=== PATIENT | female | born 1980 | race Caucasian/White ===

== ENCOUNTER → 2016-10-29 | Outpatient (CLI) | payer OTHER ==
[2016-10-29 11:02] LABS: CHLORIDE,CL 110 mmol/L (98-110); SODIUM,NA 141 mmol/L (136-146)
== END ==
LOC: MW.CHFP 10:25
PROVIDERS: ATTEND Nurse Practitioner Family
DX: Z01.818 Encounter for other preprocedural examination (principal)
CPT/HCPCS: 36415; 80048; 81001; 81025; 85027

== ENCOUNTER 2017-04-05 15:35 | Emergency (ER) | payer OTHER ==
--- NOTE | 2017-04-05 16:09 | EDM.PDOC ---
ED HPI GENERAL MEDICAL PROBLEM - General Chief Complaint: Upper Extremity Injury/Pain Stated Complaint: LEFT SHOULDER PAIN Time Seen by Provider: 04/05/17 16:04 - History of Present Illness INITIAL COMMENTS - FREE TEXT/NARRATIVE: HISTORY AND PHYSICAL: History of present illness: Patient 36-year-old female sensory concern of left shoulder injury this occurred when she was pulled up while doing a physical activity this past weekend she's had discomfort since. She denies direct trauma or other concern she denies prior injuries. Review of systems: As per history of present illness and below otherwise all systems reviewed and negative. Past medical history: As per history of present illness and as reviewed below otherwise noncontributory. Surgical history: As per history of present illness and as reviewed below otherwise noncontributory. Social history: No reported history of drug or alcohol abuse. Family history: As per history of present illness and as reviewed below otherwise noncontributory. Physical exam: HEENT: Atraumatic, normocephalic, pupils reactive, negative for conjunctival pallor or scleral icterus, mucous membranes moist, throat clear, neck supple, nontender, trachea midline. Lungs: Clear to auscultation, breath sounds equal bilaterally, chest nontender. Heart: S1S2, regular, negative for clicks, rubs, or JVD. Abdomen: Soft, nondistended, nontender. Negative for masses or hepatosplenomegaly. Negative for costovertebral tenderness. Pelvis: Stable nontender. Genitourinary: Deferred. Rectal: Deferred. Extremities: Left shoulder is tenderness in the region of the acromioclavicular joint and anterior deltoid she has limited range of motion due to pain. There is no gross deformity CMS neurovascular is unremarkable Neuro: Awake, alert, oriented. Cranial nerves II through XII unremarkable. Cerebellum unremarkable. Motor and sensory unremarkable throughout. Exam nonfocal. Diagnostics: X-ray left shoulder Therapeutics: Sling Impression: #1 acute left shoulder injury Definitive disposition and diagnosis as appropriate pending reevaluation and review of above. Left Shoulder Pain Score (Numeric/FACES): 7 - Related Data Allergies Allergy/AdvReac Type Severity Reaction Status Date / Time No Known Allergies Allergy Verified 10/04/14 10:03 Social & Family History - Tobacco Use Smoking Status *Q: Never Smoker Second Hand Smoke Exposure: No - Caffeine Use Caffeine Use: Reports: None - Recreational Drug Use Recreational Drug Use: No Review of Systems - Review of Systems Review Of Systems: ROS reveals no pertinent complaints other than HPI. ED EXAM, GENERAL - Physical Exam Exam: See Below (See dictation) Course - Vital Signs Last Recorded V/S: Last Vital Signs Temp 36.6 C 04/05/17 15:55 Pulse 74 04/05/17 15:55 Resp 20 04/05/17 15:55 BP 107/56 L 04/05/17 15:55 Pulse Ox 100 04/05/17 15:55 - Orders/Labs/Meds Orders: Active Orders 24 hr Category Date Time Status Shoulder Comp Lt [CR] Stat Exams 04/05/17 16:10 Taken Ketorolac [Toradol] Med 04/05/17 17:29 Once 60 mg IM ONETIME ONE Meds: Medications Discontinued Medications Generic Name Dose Route Start Last Admin Trade Name Freq PRN Reason Stop Dose Admin Ketorolac Tromethamine 60 mg 04/05/17 17:29 Toradol IM 04/05/17 17:30 ONETIME ONE Departure - Departure Time of Disposition: 17:23 Disposition: Home, Self-Care 01 Condition: Good Clinical Impression: Shoulder injury Qualifiers: Encounter type: initial encounter Laterality: left Qualified Code(s): S49.92XA - Unspecified injury of left shoulder and upper arm, initial encounter - Discharge Information Referrals: Dora Wilcox NP [Primary Care Provider] - Forms: ED Department Discharge Additional Instructions: The following information is given to patients seen in the emergency department who are being discharged to home. This information is to outline your options for follow-up care. We provide all patients seen in our emergency department with a follow-up referral. The need for follow-up, as well as the timing and circumstances, are variable depending upon the specifics of your emergency department visit. If you don't have a primary care physician on staff, we will provide you with a referral. We always advise you to contact your personal physician following an emergency department visit to inform them of the circumstance of the visit and for follow-up with them and/or the need for any referrals to a consulting specialist. The emergency department will also refer you to a specialist when appropriate. This referral assures that you have the opportunity for followup care with a specialist. All of these measure are taken in an effort to provide you with optimal care, which includes your followup. Under all circumstances we always encourage you to contact your private physician who remains a resource for coordinating your care. When calling for followup care, please make the office aware that this follow-up is from your recent emergency room visit. If for any reason you are refused follow-up, please contact the [facility] emergency department at and asked to speak to the emergency department charge nurse. [facility] [address], [address] [place] [address] 1. Please wear the sling that has been provided to you for comfort. 2. May take [id number] ibuprofen and/or Tylenol as directed for pain and discomfort. 3. Please follow-up with your primary care provider in the next 1-2 days. If pain continues please follow-up with orthopedics, this number has been provided for you. 4. Return to the ER as needed as discussed - My Orders Last 24 Hours: My Active Orders 04/05/17 16:10 Shoulder Comp Lt [CR] Stat 04/05/17 17:29 Ketorolac [Toradol] 60 mg IM ONETIME ONE - Assessment/Plan Last 24 Hours: My Active Orders 04/05/17 16:10 Shoulder Comp Lt [CR] Stat 04/05/17 17:29 Ketorolac [Toradol] 60 mg IM ONETIME ONE
[2017-04-05] MEDS ORDERED: Ketorolac 60 MG/2 ML SDV IM ONE (17:29)
[2017-04-05 18:16] VITALS: BP 99/58
--- NOTE | 2017-04-06 10:13 | CR ---
EXAM DATE: 04/05/17 PATIENT'S AGE: 36 Patient: DIDIER LIRIANO Facility: [place], [place] Site . Site : 1980 Study: XRay Shoulder Left [id number]/29/2017 4:42:25 PM Ordering Physician: Kwame Tan Final Report: Indication: Pain Technique: Three views of the left shoulder Comparison: None available Findings: Bones: Alignment is normal. No fractures or bone lesions. Joint spaces: Unremarkable. Soft tissues: Unremarkable. Impression: Negative. Dictated by Delfin Fam MD @ 04/05/2017 5:13:07 PM Dictated by: Delfin Fam MD @ 04/05/2017 17:13:14 (Electronic Signature) Report Signed by Proxy. CONG
== END 2017-04-05 18:15 | disposition home or self-care (01) ==
LOC: MW.ED 15:35
DX: S49.92XA Unspecified injury of left shoulder and upper arm, initial encounter (principal); X50.9XXA Other and unspecified overexertion or strenuous movements or postures, initial encounter; Y93.89 Activity, other specified
CPT/HCPCS: 73030; 96372; 99283; J1885; 99282

== ENCOUNTER 2018-03-23 12:59 | Emergency (ER) | payer OTHER ==
[2018-03-23 13:15] VITALS: BP 97/63
[2018-03-23] MEDS ORDERED: Metoclopramide 10 MG/2 ML SDV IV ONE (13:24)
[2018-03-23] MEDS ORDERED: Ondansetron 4 MG Tab.DIS PO ONE (13:24)
[2018-03-23] MEDS ORDERED: Ketorolac 30 MG/ML SDV IVPUSH ONE (13:24)
[2018-03-23] MEDS ORDERED: diphenhydrAMINE 50 MG/ML SDV IVPUSH ONE (13:24)
[2018-03-23] MEDS ORDERED: Sodium Chloride 0.9% 1,000 ML IV ONE (13:24)
--- NOTE | 2018-03-23 13:24 | EDM.PDOC ---
ED HPI GENERAL MEDICAL PROBLEM - General Chief Complaint: Headache Stated Complaint: FEVER AND BAD HEADACHE Time Seen by Provider: 03/23/18 13:05 - History of Present Illness INITIAL COMMENTS - FREE TEXT/NARRATIVE: HISTORY AND PHYSICAL: History of present illness: Patient's a 37-year-old female history migraine headache was on prophylactic medication and has not had one for approximately 4 months presents with concern of low-grade fever and headache she's had photophobia but no associated nausea there's been no other neurological signs or symptoms she denies chest pain cough shortness breath abdominal pain urinary symptoms or other complaints. Review of systems: As per history of present illness and below otherwise all systems reviewed and negative. Past medical history: As per history of present illness and as reviewed below otherwise noncontributory. Surgical history: As per history of present illness and as reviewed below otherwise noncontributory. Social history: No reported history of drug or alcohol abuse. Family history: As per history of present illness and as reviewed below otherwise noncontributory. Physical exam: HEENT: Atraumatic, normocephalic, pupils reactive, negative for conjunctival pallor or scleral icterus, mucous membranes moist, throat clear, neck supple, nontender, trachea midline. Lungs: Clear to auscultation, breath sounds equal bilaterally, chest nontender. Heart: S1S2, regular, negative for clicks, rubs, or JVD. Abdomen: Soft, nondistended, nontender. Negative for masses or hepatosplenomegaly. Negative for costovertebral tenderness. Pelvis: Stable nontender. Genitourinary: Deferred. Rectal: Deferred. Extremities: Atraumatic, negative for cords or calf pain. Neurovascular unremarkable. Neuro: Awake, alert, oriented. Cranial nerves II through XII unremarkable. Cerebellum unremarkable. Motor and sensory unremarkable throughout. Exam nonfocal. Diagnostics: West Nile serology Therapeutics: Normal saline 1 L bolus Reglan 10 mg IV Zofran for millirems IV Toradol 30 mg IV Benadryl 50 mg IV Impression: #1 cephalgia Definitive disposition and diagnosis as appropriate pending reevaluation and review of above. 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 ED EXAM, GENERAL - Physical Exam Exam: See Below (See dictation) Course - Vital Signs Text/Narrative:: I discussed with patient and more extensive testing regarding blood and imaging at this time they defer I discussed with him risk benefits of all the above I discussed with them fax regarding West Nile virus and other related etiologies separate and apart from migraine headache and understand. Last Recorded V/S: Last Vital Signs Temp 36.6 C 03/23/18 13:09 Pulse 105 H 03/23/18 13:09 Resp 16 03/23/18 13:09 BP 97/63 03/23/18 13:09 Pulse Ox 95 03/23/18 13:09 - Orders/Labs/Meds Orders: Active Orders 24 hr Category Date Time Status WEST NILE VIRUS ANTIBODY,SERUM [REF] DAILY Lab 03/23/18 13:50 Received Meds: Medications Discontinued Medications Generic Name Dose Route Start Last Admin Trade Name Freq PRN Reason Stop Dose Admin Diphenhydramine HCl 50 mg 03/23/18 13:24 03/23/18 13:57 Benadryl IVPUSH 03/23/18 13:25 50 mg ONETIME ONE Administration Sodium Chloride 1,000 mls @ 999 mls/hr 03/23/18 13:24 03/23/18 13:50 Normal Saline IV 03/23/18 14:24 999 mls/hr STAT ONE Administration Ketorolac Tromethamine 30 mg 03/23/18 13:24 03/23/18 13:54 Toradol IVPUSH 03/23/18 13:25 30 mg ONETIME ONE Administration Metoclopramide HCl 10 mg 03/23/18 13:24 03/23/18 13:51 Reglan IV 03/23/18 13:25 10 mg ONETIME ONE Administration Ondansetron HCl 4 mg 03/23/18 13:24 03/23/18 13:49 Zofran Odt PO 03/23/18 13:25 4 mg ONETIME ONE Administration Departure - Departure Time of Disposition: 14:24 Disposition: Home, Self-Care 01 Condition: Good Clinical Impression: Migraine - Discharge Information *PRESCRIPTION DRUG MONITORING PROGRAM REVIEWED*: Not Applicable *COPY OF PRESCRIPTION DRUG MONITORING REPORT IN PATIENT TRAY: Not Applicable Referrals: Dora Wilcox NP [Primary Care Provider] - Forms: ED Department Discharge Additional Instructions: The following information is given to patients seen in the emergency department who are being discharged to home. This information is to outline your options for follow-up care. We provide all patients seen in our emergency department with a follow-up referral. The need for follow-up, as well as the timing and circumstances, are variable depending upon the specifics of your emergency department visit. If you don't have a primary care physician on staff, we will provide you with a referral. We always advise you to contact your personal physician following an emergency department visit to inform them of the circumstance of the visit and for follow-up with them and/or the need for any referrals to a consulting specialist. The emergency department will also refer you to a specialist when appropriate. This referral assures that you have the opportunity for followup care with a specialist. All of these measure are taken in an effort to provide you with optimal care, which includes your followup. Under all circumstances we always encourage you to contact your private physician who remains a resource for coordinating your care. When calling for followup care, please make the office aware that this follow-up is from your recent emergency room visit. If for any reason you are refused follow-up, please contact the [facility] emergency department at and asked to speak to the emergency department charge nurse. Continue current medications follow-up primary medical doctor/neurology as needed as discussed return as needed as discussed - My Orders Last 24 Hours: My Active Orders 03/23/18 13:50 WEST NILE VIRUS ANTIBODY,SERUM [REF] DAILY - Assessment/Plan Last 24 Hours: My Active Orders 03/23/18 13:50 WEST NILE VIRUS ANTIBODY,SERUM [REF] DAILY
== END 2018-03-23 14:55 | disposition home or self-care (01) ==
LOC: MW.ED 12:59
DX: G43.909 Migraine, unspecified, not intractable, without status migrainosus (principal); Z79.899 Other long term (current) drug therapy
CPT/HCPCS: 86788; 86789; 96361; 96374; 96375; 99284; A9270; J1200; J1885; J2765; J7040

== ENCOUNTER 2018-11-15 08:14 | Day surgery (SDC) | payer OTHER ==
[~2018-11-15 08:14] MED LIST: Acetaminophen/HYDROcodone 325-5 MG Tab PO PRN; Dexamethasone 4 MG/ML 5 ML MDV ONE; Lactated Ringers 1,000 ML IV SCH; Lidocaine 1% 20 ML MDV ONE; Midazolam 1 MG/ML 2 ML SDV ONE; Ondansetron 4 MG/2 ML SDV ONE; Propofol 200 MG/20 ML SDV ONE; ceFAZolin 1 GM in Premix Bag 1 BAG IV SCH; fentaNYL 250 MCG/5 ML SDV ONE
--- NOTE | 2018-11-15 09:22 | PCM.PREANE ---
Preanesthetic Assessment - Anesthesia/Transfusion/Family Hx Anesthesia History: Prior Anesthesia Without Reaction Family History of Anesthesia Reaction: No Transfusion History: No Prior Transfusion(s) - Review of Systems General: No Symptoms Pulmonary: No Symptoms Cardiovascular: No Symptoms Gastrointestinal: No Symptoms Neurological: No Symptoms Other: Reports: None - Physical Assessment NPO Status Date: 11/14/18 O2 Sat by Pulse Oximetry: 100 Respiratory Rate: 16 Vital Signs: Last Vital Signs Temp 98.8 F 11/15/18 08:45 Pulse 70 11/15/18 08:45 Resp 16 11/15/18 08:45 BP 104/66 11/15/18 08:45 Pulse Ox 100 11/15/18 08:45 Height: 5 ft 4 in Weight: 52.617 kg ASA Class: 2 Mental Status: Alert & Oriented x3 Airway Class: Mallampati = 2 Dentition: Reports: Normal Dentition ROM/Head Extension: Full Lungs: Clear to Auscultation, Normal Respiratory Effort Cardiovascular: Regular Rate, Regular Rhythm - Lab Values: Laboratory Last Values Urine HCG, Qual NEGATIVE (NEGATIVE) 11/15/18 08:42 - Allergies Allergies/Adverse Reactions: Allergies Allergy/AdvReac Type Severity Reaction Status Date / Time sulfamethoxazole Allergy Rash Verified 11/14/18 11:53 [From Bactrim] trimethoprim [From Bactrim] Allergy Rash Verified 11/14/18 11:53 - Blood Blood Available: No - Anesthesia Plan Pre-Op Medication Ordered: None - Acknowledgements Anesthesia Type Planned: General Anesthesia Pt an Appropriate Candidate for the Planned Anesthesia: Yes Alternatives and Risks of Anesthesia Discussed w Pt/Guardian: Yes Pt/Guardian Understands and Agrees with Anesthesia Plan: Yes Additional Comments: PMH: exerc ind asthma, hx of migraines, Has neurostim pump for bladder (use grounding pad on thigh) PLAN: [id number] PreAnesthesia Questionnaire HEENT History: Reports: Other (See Below) Other HEENT History: wears glasses/contacts Respiratory History: Reports: Asthma Other Respiratory History: exercised induced asthma Genitourinary History: Reports: UTI, Recurrent Other Genitourinary History: 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 Musculoskeletal History: Reports: Fracture Other Musculoskeletal History: hx of fx tibia and foot Neurological History: Reports: Concussion, Migraines Other Neuro History: takes topirimate BID for migraines, hx of motion sickness - Infectious Disease History Infectious Disease History: Reports: Chicken Pox - Past Surgical History Head Surgeries/Procedures: Reports: None GI Surgical History: Reports: Appendectomy, Cholecystectomy, Other (See Below) Other GI Surgeries/Procedures: Abdominoplasty Female Surgical History: Reports: Breast Implant, Other (See Below) Other Female Surgeries/Procedures: has a Sacral Neuromodulator implanted in her back to stimulate bladder to empty - SUBSTANCE USE Smoking Status *Q: Never Smoker Recreational Drug Use History: No - HOME MEDS Home Medications: Home Meds Spironolactone [Aldactone] 100 mg PO BEDTIME 11/14/18 [History] Topiramate 50 mg PO BID 11/14/18 [History] traZODone HCl [Trazodone HCl] 100 mg PO BEDTIME 11/14/18 [History] - CURRENT (IN HOUSE) MEDS Current Meds: Current Medications Hydrocodone Bitart/Acetaminophen ([place] 325-5 Mg) 1 - 2 tab PO Q4H PRN PRN Reason: Pain Cefazolin Sodium/Dextrose 1 gm (/ Premix) 50 mls @ 100 mls/hr IV ONCALL LISA Lactated Ringer's (Ringers, Lactated) 1,000 mls @ 100 mls/hr IV ASDIRECTED LISA Discontinued Medications Dexamethasone (Dexamethasone) Confirm Administered Dose 20 mg .ROUTE .STK-MED ONE Stop: 11/15/18 07:14 Fentanyl (Sublimaze) Confirm Administered Dose 250 mcg .ROUTE .STK-MED ONE Stop: 11/15/18 07:14 Lidocaine HCl (Xylocaine-Mpf 1%) Confirm Administered Dose 5 mls @ as directed .ROUTE .STK-MED ONE Stop: 11/15/18 07:14 Cefazolin Sodium/Dextrose (Ancef) Confirm Administered Dose 50 mls @ as directed .ROUTE .STK-MED ONE Stop: 11/15/18 07:20 Lidocaine HCl (Xylocaine 1%) Confirm Administered Dose 20 ml .ROUTE .STK-MED ONE Stop: 11/15/18 07:37 Midazolam HCl (Versed 1 Mg/Ml) Confirm Administered Dose 2 mg .ROUTE .STK-MED ONE Stop: 11/15/18 07:14 Ondansetron HCl (Zofran) Confirm Administered Dose 4 mg .ROUTE .STK-MED ONE Stop: 11/15/18 07:14 Propofol (Diprivan 20 Ml) Confirm Administered Dose 200 mg .ROUTE .[facility] ONE Stop: 11/15/18 07:14
[2018-11-15] MEDS ORDERED: Ketorolac 30 MG/ML SDV ONE (11:46)
--- NOTE | 2018-11-15 11:59 | PCM.OPNOTE ---
- General Post-Op/Procedure Note Condition: Good Free Text/Narrative:: #[id number] tt=10 min
[2018-11-15] MEDS ORDERED: fentaNYL 100 MCG/2 ML SDV IVPUSH PRN (12:25)
--- NOTE | 2018-11-15 12:54 | PCM.POSTAN ---
POST ANESTHESIA ASSESSMENT - MENTAL STATUS Mental Status: Alert, Oriented - RESPIRATORY Respiratory Status: Respiratory Rate WNL, Airway Patent, O2 Saturation Stable - CARDIOVASCULAR CV Status: Pulse Rate WNL, Blood Pressure Stable - GASTROINTESTINAL GI Status: No Symptoms - POST OP HYDRATION Hydration Status: Adequate & Stable
--- NOTE | 2018-11-15 12:55 | PCM48HPAN ---
Post Anesthesia Note - EVALUATION WITHIN 48HRS OF ANESTHETIC Vital Signs in Normal Range: Yes Patient Participated in Evaluation: Yes Respiratory Function Stable: Yes Airway Patent: Yes Cardiovascular Function Stable: Yes Hydration Status Stable: Yes Pain Control Satisfactory: Yes Nausea and Vomiting Control Satisfactory: Yes Mental Status Recovered: Yes Resp Rate: 16
[2018-11-15 13:50] VITALS: BP 94/53
--- NOTE | 2018-11-15 18:25 | OR ---
SURGEON: Nicky Ross MD DATE OF PROCEDURE: 11/15/2018 PREOPERATIVE DIAGNOSIS: Right knee pain. POSTOPERATIVE DIAGNOSIS: 1. Right knee medial plica. 2. Right knee patellar chondromalacia. PROCEDURE PERFORMED: Right knee arthroscopy with excision of medial plica and chondroplasty of the patella. PROGRAMS MANAGER: Griselda Hernandez PA-C. ANESTHESIA: General. ESTIMATED BLOOD LOSS: 5 mL. TOURNIQUET TIME: See nursing record. COMPLICATIONS: None. DVT PROPHYLAXIS: PAS boot to the nonoperative leg. IMPLANTS USED: None. BRIEF HISTORY: Nery is a 38-year-old female who has had complaint of ongoing right knee pain. She was unable to undergo an MRI due to a history of an implanted stimulator. Due to her lack of response to conservative treatment, I did recommend surgical intervention. The risks and goals of the procedure were discussed with the patient and were documented preoperatively. She agreed to proceed. DESCRIPTION OF PROCEDURE: Patient was properly identified and brought to the operating room. She was transferred from the OR cart and placed on the operating table in supine position. General anesthesia was administered. After adequate anesthesia was obtained, a well-padded tourniquet was applied to the right lower extremity. The right lower extremity was then prepped in standard fashion using ChloraPrep solution. It was then sterilely draped. A time-out was performed to ensure correct site and procedure. Preoperative antibiotics were given. The surgical site had been marked preoperatively. An Esmarch was used to exsanguinate the right lower extremity, and the tourniquet was inflated to 250 mmHg. A lateral portal arthrotomy was established. Blunt trocar and cannula were introduced into the suprapatellar pouch. Camera, inflow, and outflow were assembled. No significant synovitis was noted. The patellofemoral joint was visualized. There was an area of grade 3 chondromalacia along the superolateral portion of the patella. The patella appeared to track midline. I then extended down the lateral and medial gutter. No loose bodies were identified. I then entered the medial compartment. A medial portal arthrotomy was established. The meniscus was extensively probed. No tearing or instability was noted. The joint surfaces also appeared pristine. I then entered the notch. Both the ACL and PCL were visualized and probed and found to be intact. I then entered the lateral compartment. The meniscus showed no signs of tearing or instability. The joint surfaces again appeared pristine. I then re-entered the patellofemoral joint. The superolateral area of cartilage was inspected. There were a few loose fragments and I proceeded with a chondroplasty of the patella. No further loose fragments were noted. The medial plica was then inspected. There was a thick band of tissue that appeared to be impinging on the medial femoral condyle as the knee was taken through flexion and extension. I elected to proceed with excision of this. A shaver was used to remove the band of tissue which was removed easily and no further impingement was noted. Instruments were then removed from the knee. The portal sites were closed with 3-0 nylon. 1% Lidocaine was injected along the portal tracts. Xeroform gauze was placed over the wound and a bulky dressing was applied. The tourniquet was then deflated. She was awakened from her anesthetic and transferred back to the operating room cart. She was brought to recovery room in stable condition. All needle and sponge counts were correct. JAKE / GARRETT /[id number]
== END 2018-11-15 14:25 | disposition home or self-care (01) ==
LOC: MW.SDS 08:14
PROVIDERS: ATTEND Orthopaedic Surgery
DX: M67.51 Plica syndrome, right knee (principal); M22.41 Chondromalacia patellae, right knee; M65.861 Other synovitis and tenosynovitis, right lower leg; J45.990 Exercise induced bronchospasm; Z88.1 Allergy status to other antibiotic agents
CPT/HCPCS: 29875; 81025; A9270; J0690; J1100; J1885; J2001; J2250; J2405; J2704; J3010

== ENCOUNTER 2020-04-27 22:27 | Observation (INO) | payer OTHER ==
[2020-04-27] MEDS ORDERED: Morphine 10 MG/ML Syringe IVPUSH ONE (23:15)
[2020-04-27] MEDS ORDERED: Sodium Chloride 0.9% 2.5 ML Syringe FLUSH PRN (23:15)
[2020-04-27] MEDS ORDERED: Ondansetron 4 MG/2 ML SDV IVPUSH ONE (23:15)
[2020-04-27] MEDS ORDERED: Ketorolac 15 MG/ML SDV IVPUSH ONE (23:15)
[2020-04-27] MEDS ORDERED: Sodium Chloride 0.9% 1,000 ML IV ONE (23:15)
[2020-04-27] MEDS ORDERED: Sodium Chloride 0.9% 10 ML Syringe FLUSH PRN (23:15)
--- NOTE | 2020-04-27 23:19 | EDM.PDOC ---
ED HPI GENERAL MEDICAL PROBLEM - General Chief Complaint: Flank Pain Stated Complaint: KIDNEY PAIN Time Seen by Provider: 04/27/20 23:17 Source of Information: Reports: Patient History Limitations: Reports: No Limitations - History of Present Illness INITIAL COMMENTS - FREE TEXT/NARRATIVE: History of present illness: [Patient is 39-year-old female who presents with right flank pain. She states that she was seen by urology and had surgery to remove a kidney stone, this included cystoscopy and lithotripsy. She states that there was some concern she may have had an infection associate with a stone but she was never put on antibiotics. She states since having the surgery she has had some worsening pain in the right flank, was taking Percocet and ibuprofen at home but states that she ran out of the Percocet on Tuesday and the Tylenol and ibuprofen she has been using at home has not been sufficient and she is having significantly worsening pain. She denies fever or chills. She denies chest pain or shortness of breath. She endorses dysuria and increased frequency as well.] Review of systems: As per history of present illness and below otherwise all systems reviewed and negative. Past medical history: As per history of present illness and as reviewed below otherwise noncontributory. Surgical history: As per history of present illness and as reviewed below otherwise noncontributory. Social history: No reported history of drug or alcohol abuse. Family history: As per history of present illness and as reviewed below otherwise noncontributory. Physical exam: General: Awake, alert, mild distress, A&O X3. HEENT: Atraumatic, normocephalic, pupils reactive, negative for conjunctival pallor or scleral icterus, mucous membranes moist, throat clear, neck supple, nontender, trachea midline. Lungs: Clear to auscultation, breath sounds equal bilaterally, chest nontender. Heart: RRR, normal S1S2, no JVD. Abdomen: Soft, nondistended, nontender. Negative for masses or hepatosplenomegaly. mild right costovertebral tenderness. Pelvis: Stable nontender. Genitourinary: Deferred. Rectal: Deferred. Extremities: Atraumatic, no edema, Neurovascular unremarkable. Neuro: Motor and sensory grossly intact throughout. Exam nonfocal. Diagnostics: [] Therapeutics: [] Impression: [] Plan: [] Definitive disposition and diagnosis as appropriate pending reevaluation and review of above. Right Flank Pain Score (Numeric/FACES): 10 - Related Data Allergies Allergy/AdvReac Type Severity Reaction Status Date / Time sulfamethoxazole Allergy Rash Verified 04/27/20 22:57 [From Bactrim] trimethoprim [From Bactrim] Allergy Rash Verified 04/27/20 22:57 Home Meds: Home Meds Spironolactone [Aldactone] 100 mg PO BEDTIME 11/14/18 [History] Topiramate 50 mg PO BID 11/14/18 [History] traZODone HCl [Trazodone HCl] 100 mg PO BEDTIME 11/14/18 [History] Acetaminophen/HYDROcodone [[place] 325-5 MG] 1 - 2 tab PO Q4H PRN #20 tablet 11/15/18 [Rx] Past Medical History HEENT History: Reports: Other (See Below) Other HEENT History: wears glasses/contacts Respiratory History: Reports: Asthma Other Respiratory History: exercised induced asthma Genitourinary History: Reports: UTI, Recurrent Other Genitourinary History: 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 Musculoskeletal History: Reports: Fracture Other Musculoskeletal History: hx of fx tibia and foot Neurological History: Reports: Concussion, Migraines Other Neuro History: takes topirimate BID for migraines, hx of motion sickness - Infectious Disease History Infectious Disease History: Reports: Chicken Pox - Past Surgical History Head Surgeries/Procedures: Reports: None GI Surgical History: Reports: Appendectomy, Cholecystectomy, Other (See Below) Other GI Surgeries/Procedures: Abdominoplasty Female Surgical History: Reports: Breast Implant, Other (See Below) Other Female Surgeries/Procedures: has a Sacral Neuromodulator implanted in her back to stimulate bladder to empty Social & Family History - Family History Family Medical History: Noncontributory - Caffeine Use Caffeine Use: Reports: Energy Drinks ED ROS GENERAL - Review of Systems Review Of Systems: Comprehensive ROS is negative, except as noted in HPI. ED EXAM, RENAL/ - Physical Exam Exam: See Below (see h and p) Course - Vital Signs Text/Narrative:: Patient to be admitted for intractable flank pain. Her work-up here shows that she does have some right-sided hydronephrosis and hydroureter. Unclear if this is due to edema or possible hematoma related to her recent procedure of removing the kidney stone. She also has what looks to be a mild focal area of pneumonitis in the right lower lobe of the lung. For this reason I elected to treat her with a dose of Rocephin here in the ED. No evidence for UTI. Vital signs stable. No fever. Urology consulted, Dr. Ledesma, agrees to see the patient in the morning. She will be admitted for observation, pain control, and urological consult. She is agreeable to this plan and stable at admission. Last Recorded V/S: Last Vital Signs Temp 36.4 C 04/27/20 22:53 Pulse 60 04/28/20 00:15 Resp 18 04/28/20 00:15 BP 105/59 L 04/28/20 00:15 Pulse Ox 97 04/28/20 00:15 - Orders/Labs/Meds Orders: Active Orders 24 hr Category Date Time Status Sodium Chloride 0.9% [Saline Flush] Med 04/27/20 23:15 Active 10 ml FLUSH ASDIRECTED PRN Sodium Chloride 0.9% [Saline Flush] Med 04/27/20 23:15 Active 2.5 ml FLUSH ASDIRECTED PRN Saline Lock Insert [OM.PC] Stat Oth 04/27/20 23:15 Ordered Medication Orders Ceftriaxone Sodium/Dextrose 1 (gm/ Premix) 50 mls @ 100 mls/hr IV ONETIME ONE Stop: 04/28/20 02:10 Last Admin: 04/28/20 01:51 Dose: 100 mls/hr Documented by: NA Sodium Chloride (Saline Flush) 10 ml FLUSH ASDIRECTED PRN PRN Reason: Keep Vein Open Sodium Chloride (Saline Flush) 2.5 ml FLUSH ASDIRECTED PRN PRN Reason: Keep Vein Open Labs: Laboratory Tests 04/27/20 04/27/20 04/27/20 Range/Units 23:15 23:15 23:25 WBC 8.16 (4.0-11.0) K/uL RBC 3.90 L (4.30-5.90) M/uL Hgb 12.2 (12.0-16.0) g/dL Hct 36.2 (36.0-46.0) % MCV 92.8 (80.0-98.0) fL MCH 31.3 (27.0-32.0) pg MCHC 33.7 (31.0-37.0) g/dL RDW Std Deviation 40.3 (28.0-62.0) fl RDW Coeff of Elliot 12 (11.0-15.0) % Plt Count 192 (150-400) K/uL MPV 10.70 (7.40-12.00) fL Neut % (Auto) 56.9 (48.0-80.0) % Lymph % (Auto) 31.9 (16.0-40.0) % [place] % (Auto) 8.8 (0.0-15.0) % Eos % (Auto) 2.2 (0.0-7.0) % Baso % (Auto) 0.2 (0.0-1.5) % Neut # (Auto) 4.6 (1.4-5.7) K/uL Lymph # (Auto) 2.6 H (0.6-2.4) K/uL [place] # (Auto) 0.7 (0.0-0.8) K/uL Eos # (Auto) 0.2 (0.0-0.7) K/uL Baso # (Auto) 0.0 (0.0-0.1) K/uL Nucleated RBC % 0.0 /100WBC Nucleated RBCs # 0 K/uL Lactate (0.20-2.00) mmol/L Sodium (136-145) mmol/L Potassium (3.5-5.1) mmol/L Chloride (98-107) mmol/L Carbon Dioxide (21.0-32.0) mmol/L BUN (7.0-18.0) mg/dL Creatinine (0.6-1.0) mg/dL Est Cr Clr Drug Dosing Estimated GFR (MDRD) ml/min Glucose (74-106) mg/dL Calcium (8.5-10.1) mg/dL Total Bilirubin (0.2-1.0) mg/dL AST (15-37) IU/L ALT (14-63) IU/L Alkaline Phosphatase (46-116) U/L Total Protein (6.4-8.2) g/dL Albumin (3.4-5.0) g/dL Globulin (2.6-4.0) g/dL Albumin/Globulin Ratio (0.9-1.6) Urine Color YELLOW Urine Appearance SLT CLOUDY Urine pH 6.5 (5.0-8.0) Ur Specific [place] <= 1.005 (1.001-1.035) Urine Protein NEGATIVE (NEGATIVE) mg/dL Urine Glucose (UA) NEGATIVE (NEGATIVE) mg/dL Urine Ketones NEGATIVE (NEGATIVE) mg/dL Urine Occult Blood LARGE H (NEGATIVE) Urine Nitrite NEGATIVE (NEGATIVE) Urine Bilirubin NEGATIVE (NEGATIVE) Urine Urobilinogen 0.2 (<2.0) EU/dL Ur Leukocyte Esterase TRACE H (NEGATIVE) Urine RBC 0-2 (0-2/HPF) Urine WBC 1-3 (0-5/HPF) Ur Epithelial Cells FEW (NONE-FEW) Urine Bacteria FEW (NEGATIVE) Urine HCG, Qual NEGATIVE (NEGATIVE) 04/27/20 04/27/20 Range/Units 23:25 23:25 WBC (4.0-11.0) K/uL RBC (4.30-5.90) M/uL Hgb (12.0-16.0) g/dL Hct (36.0-46.0) % MCV (80.0-98.0) fL MCH (27.0-32.0) pg MCHC (31.0-37.0) g/dL RDW Std Deviation (28.0-62.0) fl RDW Coeff of [place] (11.0-15.0) % Plt Count (150-400) K/uL MPV (7.40-12.00) fL Neut % (Auto) (48.0-80.0) % Lymph % (Auto) (16.0-40.0) % [place] % (Auto) (0.0-15.0) % Eos % (Auto) (0.0-7.0) % Baso % (Auto) (0.0-1.5) % Neut # (Auto) (1.4-5.7) K/uL Lymph # (Auto) (0.6-2.4) K/uL [place] # (Auto) (0.0-0.8) K/uL Eos # (Auto) (0.0-0.7) K/uL Baso # (Auto) (0.0-0.1) K/uL Nucleated RBC % /100WBC Nucleated RBCs # K/uL Lactate 0.8 (0.20-2.00) mmol/L Sodium 142 (136-145) mmol/L Potassium 4.3 (3.5-5.1) mmol/L Chloride 107 (98-107) mmol/L Carbon Dioxide 26.4 (21.0-32.0) mmol/L BUN 13 (7.0-18.0) mg/dL Creatinine 1.1 H (0.6-1.0) mg/dL Est Cr Clr Drug Dosing TNP Estimated GFR (MDRD) 55.6 ml/min Glucose 79 (74-106) mg/dL Calcium 8.5 (8.5-10.1) mg/dL Total Bilirubin 0.1 L (0.2-1.0) mg/dL AST 15 (15-37) IU/L ALT 20 (14-63) IU/L Alkaline Phosphatase 43 L (46-116) U/L Total Protein 6.4 (6.4-8.2) g/dL Albumin 3.6 (3.4-5.0) g/dL Globulin 2.8 (2.6-4.0) g/dL Albumin/Globulin Ratio 1.3 (0.9-1.6) Urine Color Urine Appearance Urine pH (5.0-8.0) Ur Specific [place] (1.001-1.035) Urine Protein (NEGATIVE) mg/dL Urine Glucose (UA) (NEGATIVE) mg/dL Urine Ketones (NEGATIVE) mg/dL Urine Occult Blood (NEGATIVE) Urine Nitrite (NEGATIVE) Urine Bilirubin (NEGATIVE) Urine Urobilinogen (<2.0) EU/dL Ur Leukocyte Esterase (NEGATIVE) Urine RBC (0-2/HPF) Urine WBC (0-5/HPF) Ur Epithelial Cells (NONE-FEW) Urine Bacteria (NEGATIVE) Urine HCG, Qual (NEGATIVE) Meds: Medications Generic Name Dose Route Start Last Admin Trade Name Freq PRN Reason Stop Dose Admin Ceftriaxone Sodium/Dextrose 1 50 mls @ 100 mls/hr 04/28/20 01:41 04/28/20 01:51 gm/ Premix IV 04/28/20 02:10 100 mls/hr ONETIME ONE Administration Sodium Chloride 10 ml 04/27/20 23:15 Saline Flush FLUSH ASDIRECTED PRN Keep Vein Open Sodium Chloride 2.5 ml 04/27/20 23:15 Saline Flush FLUSH ASDIRECTED PRN Keep Vein Open Discontinued Medications Generic Name Dose Route Start Last Admin Trade Name Josué PRN Reason Stop Dose Admin Sodium Chloride 1,000 mls @ 999 mls/hr 04/27/20 23:15 04/27/20 23:34 Normal Saline IV 04/28/20 00:15 999 mls/hr .Bolus ONE Administration Ceftriaxone Sodium 1 gm/ 50 mls @ 200 mls/hr 04/28/20 01:26 04/28/20 01:42 Sodium Chloride IV 04/28/20 01:40 Not Given ONETIME ONE Ketorolac Tromethamine 15 mg 04/27/20 23:15 04/27/20 23:35 Toradol IVPUSH 04/27/20 23:16 15 mg ONETIME ONE Administration Morphine Sulfate 8 mg 04/27/20 23:15 04/27/20 23:36 Morphine IVPUSH 04/27/20 23:16 8 mg ONETIME ONE Administration Ondansetron HCl 4 mg 04/27/20 23:15 04/27/20 23:34 Zofran IVPUSH 04/27/20 23:16 4 mg ONETIME ONE Administration Oxycodone/Acetaminophen 1 tab 04/28/20 01:20 04/28/20 01:51 Percocet 325-10 Mg PO 04/28/20 01:21 1 tab ONETIME ONE Administration Departure - Departure Time of Disposition: 15:00 Disposition: Refer to Observation Condition: Good Clinical Impression: Flank pain - Discharge Information Sepsis Event Note (ED) - Evaluation Sepsis Screening Result: No Definite Risk - Focused Exam Vital Signs: Vital Signs Temp Pulse Resp BP Pulse Ox 04/28/20 00:15 60 18 105/59 L 97 04/27/20 22:53 36.4 C 69 16 120/78 98 - My Orders Last 24 Hours: My Active Orders 04/27/20 23:15 Sodium Chloride 0.9% [Saline Flush] 10 ml FLUSH ASDIRECTED PRN Sodium Chloride 0.9% [Saline Flush] 2.5 ml FLUSH ASDIRECTED PRN Saline Lock Insert [OM.PC] Stat - Assessment/Plan Last 24 Hours: My Active Orders 04/27/20 23:15 Sodium Chloride 0.9% [Saline Flush] 10 ml FLUSH ASDIRECTED PRN Sodium Chloride 0.9% [Saline Flush] 2.5 ml FLUSH ASDIRECTED PRN Saline Lock Insert [OM.PC] Stat
[2020-04-27 23:50] LABS: BLOOD UREA NITROGEN,BUN 13 mg/dL (7.0-18.0); CARBON DIOXIDE,CO2 26.4 mmol/L (21.0-32.0); CHLORIDE,CL 107 mmol/L (98-107); GLUCOSE RANDOM 79 mg/dL (74-106); POTASSIUM,K 4.3 mmol/L (3.5-5.1); SODIUM,NA 142 mmol/L (136-145)
--- NOTE | 2020-04-28 00:50 | CT ---
INDICATION: Right flank pain TECHNIQUE: CT abdomen and pelvis without contrast. COMPARISON: 02/28/2020 FINDINGS: Lower chest: Very subtle foci of slight ill-defined ground-glass opacity in the right lung base. Decreased attenuation in the cardiac chambers suggestive of anemia. Breast implants. Liver: Unremarkable. Spleen: Unremarkable. Pancreas: Unremarkable. Gallbladder and bile ducts: Cholecystectomy. Mild central biliary prominence could be related to the postcholecystectomy state, although not seen on the prior. Adrenal glands: Unremarkable. Kidneys: Moderate right hydroureteronephrosis. The previously seen right renal upper pole calcification is not identified on the current study. Apparent focal soft tissue density in the region of the distal right ureter on image 107 of series 201, not seen on the recent prior study, which could represent focal urothelial edema or distal ureteral blood clot. No discrete right ureteral calcifications seen. Small right pelvic calcifications were seen on the prior study and are compatible with phleboliths. Apparent miniscule nonobstructive left renal upper pole calcific densities versus artifact. GI tract: Unremarkable. Apparent post appendectomy changes. Vascular structures: Unremarkable. Lymph nodes: Unremarkable. Miscellaneous: Small pelvic free-fluid. No free air. A small fat containing paraumbilical hernia. An imbedded device again seen in the right gluteal subcutaneous fat with the lead extending into the right posterior inferior pelvis. Pelvic Organs: An apparent 3.3 x 1.2 cm ovoid soft tissue density along the right posterior bladder wall on image 110, not seen on the prior study. A punctate calcification along the posterior bladder wall on image 110 was seen on the prior study. No gross uterine abnormality seen. A 2.2 x 1.9 cm right adnexal low-density structure on image 98 which could represent a dominant follicle. Bones: Unremarkable for age. IMPRESSION: Moderate right obstructive uropathy. A discrete right ureteral calculus is not seen. An apparent focus of soft tissue prominence in the region of the distal right ureter, and an ovoid soft tissue density in the posterior right bladder in the region of the UVJ, not seen on the recent prior study, which could represent edema and/or hematomas, related to a recently passed calculus. Further urological evaluation is recommended to exclude the less likely possibility of urothelial lesions. Small subtle foci of slight ground-glass opacity in the right lung base which could be related to minor compressive changes or a mild nonspecific infectious/inflammatory pneumonitis. Correlate clinically. Dictated by Delfin Fam MD @ 04/28/2020 12:49:43 AM Please note that all CT scans at this facility use dose modulation, iterative reconstruction, and/or weight-based dosing when appropriate to reduce radiation dose to as low as reasonably achievable. Dictated by: Delfin Fam MD @ 04/28/2020 00:49:47 (Electronically Signed)
[2020-04-28] MEDS ORDERED: Acetaminophen/oxyCODONE 325-10 MG Tab PO ONE (01:20)
[2020-04-28] MEDS ORDERED: cefTRIAXone 1 GM in Sodium Chloride 0.9% 50 ML IV ONE (01:26)
[2020-04-28] MEDS ORDERED: cefTRIAXone 1 GM in Premix Bag 1 BAG IV ONE (01:41)
[2020-04-28] MEDS: Morphine 2 MG/ML SYRINGE IVPUSH PRN ×2 (03:39→08:26)
[2020-04-28] MEDS: Lactated Ringers 1,000 ML IV SCH ×3 (03:40→21:50)
[2020-04-28 06:23] LABS: BLOOD UREA NITROGEN,BUN 10 mg/dL (7.0-18.0); CARBON DIOXIDE,CO2 23.8 mmol/L (21.0-32.0); CHLORIDE,CL 112 mmol/L (98-107); GLUCOSE RANDOM 86 mg/dL (74-106); POTASSIUM,K 3.9 mmol/L (3.5-5.1); SODIUM,NA 144 mmol/L (136-145)
[2020-04-28] MEDS: Pantoprazole 40 MG in Sodium Chloride 0.9% 10 ML IV SCH (08:26)
--- NOTE | 2020-04-28 10:06 | PCM.HP.2 ---
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 She had Procedure about 1 week ago and removed the stent on Tuesday. She reports she was starting to feel ill on tuesday with N/V and poor appetite along with dysuria and flank pain. She reports after the stent was removed she had a significant increase in pain which continued through the weekend. She attempted to call her surgeon but couldn't get through. She came to the ER here to be evaluated. She reports she has noticed some hematuria and dark urine. Flank pain is sharp and feels like her "kidney is huge". Denies fevers or chills, no chest pain or SOB. No diarrhea or constipation. No focal neurological deficits. No tobacco use, no alcohol use and no recreational drug use. Int he ED labwork stable, Hgb 12.2 BUN 13 Cr 1.1 UA negative, excepted for large blood. CT revealed moderate R obstructive uropathy, apparent focus of soft tissue prominence in the region of the distal R ureter and ovid soft tissue density in the posterior R bladder in the region of the UVJ, which could represent edema and or hematomas Subtle ground glass opacities noted in R lung base. Dr Ledesma notified in the ED, recommended admission with Hospitalist. Dr Steve Ocampo from [facility] completed procedures. Right Flank Pain Score (Numeric/FACES): 10 - Related Data Allergies/Adverse Reactions: Allergies Allergy/AdvReac Type Severity Reaction Status Date / Time sulfamethoxazole Allergy Rash Verified 04/27/20 22:57 [From Bactrim] tamsulosin [From Flomax] Allergy Itching Verified 04/28/20 03:46 trimethoprim [From Bactrim] Allergy Rash Verified 04/27/20 22:57 Home Medications: Home Meds Spironolactone [Aldactone] 100 mg PO BEDTIME 11/14/18 [History] Topiramate 50 mg PO BID 11/14/18 [History] traZODone HCl [Trazodone HCl] 100 mg PO BEDTIME 11/14/18 [History] oxyCODONE 1 tab PO Q4HR PRN 04/28/20 [History] Past Medical History HEENT History: Reports: Other (See Below) Other HEENT History: wears glasses/contacts Respiratory History: Reports: Asthma Other Respiratory History: exercised induced asthma Genitourinary History: Reports: UTI, Recurrent Other Genitourinary History: 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 Musculoskeletal History: Reports: Fracture Other Musculoskeletal History: hx of fx tibia and foot Neurological History: Reports: Concussion, Migraines Other Neuro History: takes topirimate BID for migraines, hx of motion sickness - Infectious Disease History Infectious Disease History: Reports: Chicken Pox - Past Surgical History Head Surgeries/Procedures: Reports: None GI Surgical History: Reports: Appendectomy, Cholecystectomy, Other (See Below) Other GI Surgeries/Procedures: Abdominoplasty Female Surgical History: Reports: Breast Implant, Other (See Below) Other Female Surgeries/Procedures: has a Sacral Neuromodulator implanted in her back to stimulate bladder to empty Social & Family History - Family History Family Medical History: Noncontributory - Tobacco Use Smoking Status *Q: Never Smoker Second Hand Smoke Exposure: No - Caffeine Use Caffeine Use: Reports: Coffee - Alcohol Use Days Per Week of Alcohol Use: 0 - Recreational Drug Use Recreational Drug Use: No H&P Review of Systems - Review of Systems: Review Of Systems: See Below General: Reports: No Symptoms. Denies: Fever, Chills, Malaise, Weakness HEENT: Reports: No Symptoms. Denies: Hearing Changes, Sore Throat, Vertigo Pulmonary: Reports: No Symptoms. Denies: Shortness of Breath Cardiovascular: Reports: No Symptoms. Denies: Chest Pain Gastrointestinal: Reports: Abdominal Pain, Nausea, Vomiting (not since tuesday). Denies: Black Stool, Bloody Stool, Diarrhea Genitourinary: Reports: Dysuria, Hematuria, Flank Pain Skin: Reports: No Symptoms Psychiatric: Reports: No Symptoms Neurological: Reports: No Symptoms Hematologic/Lymphatic: Reports: No Symptoms Immunologic: Reports: No Symptoms Exam - Exam Exam: See Below - Vital Signs Vital Signs: Last Vital Signs Temp 99 F 04/28/20 03:29 Pulse 60 04/28/20 03:29 Resp 16 04/28/20 03:29 BP 112/61 04/28/20 03:29 Pulse Ox 100 04/28/20 03:59 Weight: 57.663 kg - Exam General: Alert, Oriented, Cooperative Lungs: Clear to Auscultation, Normal Respiratory Effort Cardiovascular: Regular Rate, Regular Rhythm GI/Abdominal Exam: Normal Bowel Sounds, Soft, Tender (R upper and lower) Back Exam: CVA Tenderness (R) Neuro Extensive - Mental Status: Alert, Oriented x3 Neuro Extensive - Motor, Sensory, Reflexes: CN II-XII Intact - Patient Data Lab Results Last 24 hrs: Laboratory Results - last 24 hr 04/27/20 04/27/20 04/27/20 Range/Units 23:15 23:15 23:25 WBC 8.16 (4.0-11.0) K/uL RBC 3.90 L (4.30-5.90) M/uL Hgb 12.2 (12.0-16.0) g/dL Hct 36.2 (36.0-46.0) % MCV 92.8 (80.0-98.0) fL MCH 31.3 (27.0-32.0) pg MCHC 33.7 (31.0-37.0) g/dL RDW Std Deviation 40.3 (28.0-62.0) fl RDW Coeff of Elliot 12 (11.0-15.0) % Plt Count 192 (150-400) K/uL MPV 10.70 (7.40-12.00) fL Neut % (Auto) 56.9 (48.0-80.0) % Lymph % (Auto) 31.9 (16.0-40.0) % [place] % (Auto) 8.8 (0.0-15.0) % Eos % (Auto) 2.2 (0.0-7.0) % Baso % (Auto) 0.2 (0.0-1.5) % Neut # (Auto) 4.6 (1.4-5.7) K/uL Lymph # (Auto) 2.6 H (0.6-2.4) K/uL [place] # (Auto) 0.7 (0.0-0.8) K/uL Eos # (Auto) 0.2 (0.0-0.7) K/uL Baso # (Auto) 0.0 (0.0-0.1) K/uL Nucleated RBC % 0.0 /100WBC Nucleated RBCs # 0 K/uL Lactate (0.20-2.00) mmol/L Sodium (136-145) mmol/L Potassium (3.5-5.1) mmol/L Chloride (98-107) mmol/L Carbon Dioxide (21.0-32.0) mmol/L BUN (7.0-18.0) mg/dL Creatinine (0.6-1.0) mg/dL Est Cr Clr Drug Dosing Estimated GFR (MDRD) ml/min Glucose (74-106) mg/dL Calcium (8.5-10.1) mg/dL Phosphorus (2.6-4.7) mg/dL Magnesium (1.8-2.4) mg/dL Total Bilirubin (0.2-1.0) mg/dL AST (15-37) IU/L ALT (14-63) IU/L Alkaline Phosphatase (46-116) U/L Total Protein (6.4-8.2) g/dL Albumin (3.4-5.0) g/dL Globulin (2.6-4.0) g/dL Albumin/Globulin Ratio (0.9-1.6) Urine Color YELLOW Urine Appearance SLT CLOUDY Urine pH 6.5 (5.0-8.0) Ur Specific [place] <= 1.005 (1.001-1.035) Urine Protein NEGATIVE (NEGATIVE) mg/dL Urine Glucose (UA) NEGATIVE (NEGATIVE) mg/dL Urine Ketones NEGATIVE (NEGATIVE) mg/dL Urine Occult Blood LARGE H (NEGATIVE) Urine Nitrite NEGATIVE (NEGATIVE) Urine Bilirubin NEGATIVE (NEGATIVE) Urine Urobilinogen 0.2 (<2.0) EU/dL Ur Leukocyte Esterase TRACE H (NEGATIVE) Urine RBC 0-2 (0-2/HPF) Urine WBC 1-3 (0-5/HPF) Ur Epithelial Cells FEW (NONE-FEW) Urine Bacteria FEW (NEGATIVE) Urine HCG, Qual NEGATIVE (NEGATIVE) SARS-CoV-2 RNA (NILESH) (NEGATIVE) 04/27/20 04/27/20 04/28/20 Range/Units 23:25 23:25 01:30 WBC (4.0-11.0) K/uL RBC (4.30-5.90) M/uL Hgb (12.0-16.0) g/dL Hct (36.0-46.0) % MCV (80.0-98.0) fL MCH (27.0-32.0) pg MCHC (31.0-37.0) g/dL RDW Std Deviation (28.0-62.0) fl RDW Coeff of Elliot (11.0-15.0) % Plt Count (150-400) K/uL MPV (7.40-12.00) fL Neut % (Auto) (48.0-80.0) % Lymph % (Auto) (16.0-40.0) % [place] % (Auto) (0.0-15.0) % Eos % (Auto) (0.0-7.0) % Baso % (Auto) (0.0-1.5) % Neut # (Auto) (1.4-5.7) K/uL Lymph # (Auto) (0.6-2.4) K/uL [place] # (Auto) (0.0-0.8) K/uL Eos # (Auto) (0.0-0.7) K/uL Baso # (Auto) (0.0-0.1) K/uL Nucleated RBC % /100WBC Nucleated RBCs # K/uL Lactate 0.8 (0.20-2.00) mmol/L Sodium 142 (136-145) mmol/L Potassium 4.3 (3.5-5.1) mmol/L Chloride 107 (98-107) mmol/L Carbon Dioxide 26.4 (21.0-32.0) mmol/L BUN 13 (7.0-18.0) mg/dL Creatinine 1.1 H (0.6-1.0) mg/dL Est Cr Clr Drug Dosing TNP Estimated GFR (MDRD) 55.6 ml/min Glucose 79 (74-106) mg/dL Calcium 8.5 (8.5-10.1) mg/dL Phosphorus (2.6-4.7) mg/dL Magnesium (1.8-2.4) mg/dL Total Bilirubin 0.1 L (0.2-1.0) mg/dL AST 15 (15-37) IU/L ALT 20 (14-63) IU/L Alkaline Phosphatase 43 L (46-116) U/L Total Protein 6.4 (6.4-8.2) g/dL Albumin 3.6 (3.4-5.0) g/dL Globulin 2.8 (2.6-4.0) g/dL Albumin/Globulin Ratio 1.3 (0.9-1.6) Urine Color Urine Appearance Urine pH (5.0-8.0) Ur Specific [place] (1.001-1.035) Urine Protein (NEGATIVE) mg/dL Urine Glucose (UA) (NEGATIVE) mg/dL Urine Ketones (NEGATIVE) mg/dL Urine Occult Blood (NEGATIVE) Urine Nitrite (NEGATIVE) Urine Bilirubin (NEGATIVE) Urine Urobilinogen (<2.0) EU/dL Ur Leukocyte Esterase (NEGATIVE) Urine RBC (0-2/HPF) Urine WBC (0-5/HPF) Ur Epithelial Cells (NONE-FEW) Urine Bacteria (NEGATIVE) Urine HCG, Qual (NEGATIVE) SARS-CoV-2 RNA (NILESH) NEGATIVE (NEGATIVE) 04/28/20 04/28/20 Range/Units 05:40 05:40 WBC 7.91 (4.0-11.0) K/uL RBC 3.62 L (4.30-5.90) M/uL Hgb 11.2 L (12.0-16.0) g/dL Hct 33.8 L (36.0-46.0) % MCV 93.4 (80.0-98.0) fL MCH 30.9 (27.0-32.0) pg MCHC 33.1 (31.0-37.0) g/dL RDW Std Deviation 40.6 (28.0-62.0) fl RDW Coeff of Elliot 12 (11.0-15.0) % Plt Count 182 (150-400) K/uL MPV 10.70 (7.40-12.00) fL Neut % (Auto) 59.8 (48.0-80.0) % Lymph % (Auto) 30.7 (16.0-40.0) % [place] % (Auto) 7.6 (0.0-15.0) % Eos % (Auto) 1.6 (0.0-7.0) % Baso % (Auto) 0.3 (0.0-1.5) % Neut # (Auto) 4.7 (1.4-5.7) K/uL Lymph # (Auto) 2.4 (0.6-2.4) K/uL [place] # (Auto) 0.6 (0.0-0.8) K/uL Eos # (Auto) 0.1 (0.0-0.7) K/uL Baso # (Auto) 0.0 (0.0-0.1) K/uL Nucleated RBC % 0.0 /100WBC Nucleated RBCs # 0 K/uL Lactate (0.20-2.00) mmol/L Sodium 144 (136-145) mmol/L Potassium 3.9 (3.5-5.1) mmol/L Chloride 112 H (98-107) mmol/L Carbon Dioxide 23.8 (21.0-32.0) mmol/L BUN 10 (7.0-18.0) mg/dL Creatinine 0.9 (0.6-1.0) mg/dL Est Cr Clr Drug Dosing 73.19 Estimated GFR (MDRD) > 60.0 ml/min Glucose 86 (74-106) mg/dL Calcium 8.1 L (8.5-10.1) mg/dL Phosphorus 3.6 (2.6-4.7) mg/dL Magnesium 1.7 L (1.8-2.4) mg/dL Total Bilirubin (0.2-1.0) mg/dL AST (15-37) IU/L ALT (14-63) IU/L Alkaline Phosphatase (46-116) U/L Total Protein (6.4-8.2) g/dL Albumin (3.4-5.0) g/dL Globulin (2.6-4.0) g/dL Albumin/Globulin Ratio (0.9-1.6) Urine Color Urine Appearance Urine pH (5.0-8.0) Ur Specific [place] (1.001-1.035) Urine Protein (NEGATIVE) mg/dL Urine Glucose (UA) (NEGATIVE) mg/dL Urine Ketones (NEGATIVE) mg/dL Urine Occult Blood (NEGATIVE) Urine Nitrite (NEGATIVE) Urine Bilirubin (NEGATIVE) Urine Urobilinogen (<2.0) EU/dL Ur Leukocyte Esterase (NEGATIVE) Urine RBC (0-2/HPF) Urine WBC (0-5/HPF) Ur Epithelial Cells (NONE-FEW) Urine Bacteria (NEGATIVE) Urine HCG, Qual (NEGATIVE) SARS-CoV-2 RNA (NILESH) (NEGATIVE) Result Diagrams: 04/28/20 05:40 04/28/20 05:40 Sepsis Event Note - Evaluation Sepsis Screening Result: No Definite Risk - Focused Exam Vital Signs: Vital Signs Temp Pulse Resp BP Pulse Ox 04/28/20 03:59 100 04/28/20 03:29 99 F 60 16 112/61 100 04/28/20 01:55 98 F 62 18 107/67 99 04/28/20 00:15 60 18 105/59 L 97 04/27/20 22:53 97.6 F 69 16 120/78 98 - Problem List (1) Hydronephrosis, right SNOMED Code(s): 46731362 ICD Code: N13.30 - UNSPECIFIED HYDRONEPHROSIS Status: Acute Current Visit: Yes (2) Flank pain SNOMED Code(s): 580526064 ICD Code: R10.9 - UNSPECIFIED ABDOMINAL PAIN Status: Acute Current Visit: Yes Problem List Initiated/Reviewed/Updated: Yes Orders Last 24hrs: Active Orders 24 hr Category Date Time Status Patient Status [ADT] Routine ADT 04/28/20 01:24 Active Antiembolic Devices [RC] PER UNIT ROUTINE Care 04/28/20 03:20 Active Notify Provider Consults [RC] ASDIRECTED Care 04/28/20 03:34 Active Oxygen Therapy [RC] ASDIRECTED Care 04/28/20 03:19 Active Pulse Oximetry [RC] ASDIRECTED Care 04/28/20 03:20 Active Telemetry Monitoring [Cardiac Monitoring] [RC] Q8H Care 04/28/20 03:40 Active Vital Signs [RC] Q4H Care 04/28/20 03:14 Active Consult to Physician [CONS] Routine Cons 04/28/20 03:30 Active Regular Diet [DIET] Diet 04/28/20 Breakfast Active Lactated Ringers [Ringers, Lactated] 1,000 ml Med 04/28/20 03:15 Active IV ASDIRECTED Morphine Med 04/28/20 03:15 Active 2 mg IVPUSH Q4H PRN Ondansetron [Zofran] Med 04/28/20 03:18 Active 4 mg IVPUSH Q4H PRN Pantoprazole [ProTONIX IV] 40 mg Med 04/28/20 09:00 Active Sodium Chloride 0.9% [Normal Saline] 10 ml IV DAILY Sodium Chloride 0.9% [Saline Flush] Med 04/27/20 23:15 Active 10 ml FLUSH ASDIRECTED PRN Sodium Chloride 0.9% [Saline Flush] Med 04/27/20 23:15 Active 2.5 ml FLUSH ASDIRECTED PRN SCD [Sequential Compression Device] [OM.PC] Routine Oth 04/28/20 03:20 Ordered Saline Lock Insert [OM.PC] Stat Oth 04/27/20 23:15 Ordered Medication Orders Lactated Ringer's (Ringers, Lactated) 1,000 mls @ 125 mls/hr IV ASDIRECTED LISA Last Admin: 04/28/20 03:40 Dose: 125 mls/hr Documented by: ATUL Pantoprazole Sodium 40 mg/ (Sodium Chloride) 10 mls @ 300 mls/hr IV DAILY LISA Last Admin: 04/28/20 08:26 Dose: 300 mls/hr Documented by: HILLARY Morphine Sulfate (Morphine) 2 mg IVPUSH Q4H PRN PRN Reason: Pain Last Admin: 04/28/20 08:26 Dose: 2 mg Documented by: Admin: 04/28/20 03:39 Dose: 2 mg Documented by: ATUL Ondansetron HCl (Zofran) 4 mg IVPUSH Q4H PRN PRN Reason: Nausea/Vomiting Sodium Chloride (Saline Flush) 10 ml FLUSH ASDIRECTED PRN PRN Reason: Keep Vein Open Sodium Chloride (Saline Flush) 2.5 ml FLUSH ASDIRECTED PRN PRN Reason: Keep Vein Open Assessment/Plan Comment:: This 39 year old female admitted with R flank pain and CT findings of hydronephrosis s/p stent placement/removal 1. R flank pain, Hydronephrosis - Recently have stent placement and removal of stent on the right for stone removal. Dr Ocampo at [facility] completed surgery - I spoke with Dr Ocampo this morning, read him the CT he felt this could be related to post operative edema and stent removal edema. [place] if her pain was out of control, that he would recommended stent placement again or conservative management with IVF and pain control for 24-48 hours would be appropriate. Treat infection if suspected, but based on labwork and UA this is not evident. - Dr Ledesma, our urologist consulted and will see patient this afternoon. - Morphine increased to 4 mg every 3 hours IV PRN pain - CL diet - LR 125 for now - Encouraged ambulation with IS use every 1 hour VTE prophylaxis: SCDs and ambulation Consult: Dr Ledesma Dispo: 1-2 days pending improvement - Mortality Measure Prognosis:: Good
[2020-04-28] MEDS: Morphine 4 MG/ML Syringe IVPUSH PRN ×2 (12:37→15:47)
[2020-04-28] MEDS ORDERED: Magnesium Sulfate/Water 2 GM/50 ML Premix Bag IV ONE (13:58)
[2020-04-28] MEDS ORDERED: ceFAZolin 1 GM in Premix Bag 1 BAG IV PRN (16:56)
[2020-04-28] MEDS: HYDROmorphone 1 MG/ML Syringe IVPUSH PRN ×2 (18:23→21:49)
[2020-04-28] MEDS: Ondansetron 4 MG/2 ML SDV IVPUSH PRN ×2 (18:53→22:30)
[2020-04-28] MEDS ORDERED: Acetaminophen 500 MG Tab PO PRN (20:23)
[2020-04-29] MEDS: oxyCODONE 5 MG Tab PO PRN ×2 (00:18→14:41)
[2020-04-29] MEDS: HYDROmorphone 1 MG/ML Syringe IVPUSH PRN ×3 (01:51→09:03)
[2020-04-29] MEDS: Ondansetron 4 MG/2 ML SDV IVPUSH PRN (05:43)
[2020-04-29] MEDS: Lactated Ringers 1,000 ML IV SCH (05:46)
[2020-04-29 06:13] LABS: BLOOD UREA NITROGEN,BUN 7 mg/dL (7.0-18.0); CARBON DIOXIDE,CO2 23.8 mmol/L (21.0-32.0); CHLORIDE,CL 109 mmol/L (98-107); GLUCOSE RANDOM 82 mg/dL (74-106); SODIUM,NA 141 mmol/L (136-145)
--- NOTE | 2020-04-29 07:53 | PCM.PREANE ---
Preanesthetic Assessment - Anesthesia/Transfusion/Family Hx Anesthesia History: Prior Anesthesia Without Reaction Family History of Anesthesia Reaction: No Transfusion History: No Prior Transfusion(s) - Review of Systems General: No Symptoms Pulmonary: No Symptoms Cardiovascular: No Symptoms Gastrointestinal: Abdominal Pain Neurological: Headache Other: Reports: None - Physical Assessment NPO Status Date: 04/28/20 Vital Signs: Last Vital Signs Temp 97.4 F 04/28/20 20:36 Pulse 72 04/29/20 04:00 Resp 18 04/29/20 04:00 BP 109/78 04/29/20 04:00 Pulse Ox 98 04/29/20 04:00 Height: 5 ft 4 in Weight: 57.663 kg ASA Class: 2 Mental Status: Alert & Oriented x3 Airway Class: Mallampati = 2 Dentition: Reports: Normal Dentition ROM/Head Extension: Full Lungs: Clear to Auscultation, Normal Respiratory Effort Cardiovascular: Regular Rate, Regular Rhythm - Lab Values: Laboratory Last Values WBC 6.88 K/uL (4.0-11.0) 04/29/20 05:10 RBC 3.54 M/uL (4.30-5.90) L 04/29/20 05:10 Hgb 11.0 g/dL (12.0-16.0) L 04/29/20 05:10 Hct 33.0 % (36.0-46.0) L 04/29/20 05:10 MCV 93.2 fL (80.0-98.0) 04/29/20 05:10 MCH 31.1 pg (27.0-32.0) 04/29/20 05:10 MCHC 33.3 g/dL (31.0-37.0) 04/29/20 05:10 RDW Std Deviation 40.9 fl (28.0-62.0) 04/29/20 05:10 RDW Coeff of Elliot 12 % (11.0-15.0) 04/29/20 05:10 Plt Count 163 K/uL (150-400) 04/29/20 05:10 MPV 10.80 fL (7.40-12.00) 04/29/20 05:10 Neut % (Auto) 62.4 % (48.0-80.0) 04/29/20 05:10 Lymph % (Auto) 28.6 % (16.0-40.0) 04/29/20 05:10 [place] % (Auto) 7.4 % (0.0-15.0) 04/29/20 05:10 Eos % (Auto) 1.5 % (0.0-7.0) 04/29/20 05:10 Baso % (Auto) 0.1 % (0.0-1.5) 04/29/20 05:10 Neut # (Auto) 4.3 K/uL (1.4-5.7) 04/29/20 05:10 Lymph # (Auto) 2.0 K/uL (0.6-2.4) 04/29/20 05:10 [place] # (Auto) 0.5 K/uL (0.0-0.8) 04/29/20 05:10 Eos # (Auto) 0.1 K/uL (0.0-0.7) 04/29/20 05:10 Baso # (Auto) 0.0 K/uL (0.0-0.1) 04/29/20 05:10 Nucleated RBC % 0.0 /100WBC 04/29/20 05:10 Nucleated RBCs # 0 K/uL 04/29/20 05:10 Lactate 0.8 mmol/L (0.20-2.00) 04/27/20 23:25 Sodium 141 mmol/L (136-145) 04/29/20 05:10 Potassium 4.0 mmol/L (3.5-5.1) 04/29/20 05:10 Chloride 109 mmol/L (98-107) H 04/29/20 05:10 Carbon Dioxide 23.8 mmol/L (21.0-32.0) 04/29/20 05:10 BUN 7 mg/dL (7.0-18.0) 04/29/20 05:10 Creatinine 0.8 mg/dL (0.6-1.0) 04/29/20 05:10 Est Cr Clr Drug Dosing 82.33 mL/min 04/29/20 05:10 Estimated GFR (MDRD) > 60.0 ml/min 04/29/20 05:10 Glucose 82 mg/dL (74-106) 04/29/20 05:10 Calcium 8.0 mg/dL (8.5-10.1) L 04/29/20 05:10 Phosphorus 3.6 mg/dL (2.6-4.7) 04/28/20 05:40 Magnesium 1.7 mg/dL (1.8-2.4) L 04/28/20 05:40 Total Bilirubin 0.1 mg/dL (0.2-1.0) L 04/27/20 23:25 AST 15 IU/L (15-37) 04/27/20 23:25 ALT 20 IU/L (14-63) 04/27/20 23:25 Alkaline Phosphatase 43 U/L (46-116) L 04/27/20 23:25 Total Protein 6.4 g/dL (6.4-8.2) 04/27/20 23:25 Albumin 3.6 g/dL (3.4-5.0) 04/27/20 23:25 Globulin 2.8 g/dL (2.6-4.0) 04/27/20 23:25 Albumin/Globulin Ratio 1.3 (0.9-1.6) 04/27/20 23:25 Urine Color YELLOW 04/27/20 23:15 Urine Appearance SLT CLOUDY 04/27/20 23:15 Urine pH 6.5 (5.0-8.0) 04/27/20 23:15 Ur Specific [place] <= 1.005 (1.001-1.035) 04/27/20 23:15 Urine Protein NEGATIVE mg/dL (NEGATIVE) 04/27/20 23:15 Urine Glucose (UA) NEGATIVE mg/dL (NEGATIVE) 04/27/20 23:15 Urine Ketones NEGATIVE mg/dL (NEGATIVE) 04/27/20 23:15 Urine Occult Blood LARGE (NEGATIVE) H 04/27/20 23:15 Urine Nitrite NEGATIVE (NEGATIVE) 04/27/20 23:15 Urine Bilirubin NEGATIVE (NEGATIVE) 04/27/20 23:15 Urine Urobilinogen 0.2 EU/dL (<2.0) 04/27/20 23:15 Ur Leukocyte Esterase TRACE (NEGATIVE) H 04/27/20 23:15 Urine RBC 0-2 (0-2/HPF) 04/27/20 23:15 Urine WBC 1-3 (0-5/HPF) 04/27/20 23:15 Ur Epithelial Cells FEW (NONE-FEW) 04/27/20 23:15 Urine Bacteria FEW (NEGATIVE) 04/27/20 23:15 Urine HCG, Qual NEGATIVE (NEGATIVE) 04/27/20 23:15 SARS-CoV-2 RNA (NILESH) NEGATIVE (NEGATIVE) 04/28/20 01:30 - Allergies Allergies/Adverse Reactions: Allergies Allergy/AdvReac Type Severity Reaction Status Date / Time sulfamethoxazole Allergy Rash Verified 04/27/20 22:57 [From Bactrim] tamsulosin [From Flomax] Allergy Itching Verified 04/28/20 03:46 trimethoprim [From Bactrim] Allergy Rash Verified 04/27/20 22:57 - Blood Blood Available: No - Anesthesia Plan Pre-Op Medication Ordered: None - Acknowledgements Anesthesia Type Planned: General Anesthesia Pt an Appropriate Candidate for the Planned Anesthesia: Yes Alternatives and Risks of Anesthesia Discussed w Pt/Guardian: Yes Pt/Guardian Understands and Agrees with Anesthesia Plan: Yes Additional Comments: pmh: exerc ind asthma, neurostim for bladder, migraines PLAN: ga/lma PreAnesthesia Questionnaire HEENT History: Reports: Other (See Below) Other HEENT History: wears glasses/contacts Respiratory History: Reports: Asthma Other Respiratory History: exercised induced asthma Genitourinary History: Reports: UTI, Recurrent Other Genitourinary History: 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 Musculoskeletal History: Reports: Fracture Other Musculoskeletal History: hx of fx tibia and foot Neurological History: Reports: Concussion, Migraines Other Neuro History: takes topirimate BID for migraines, hx of motion sickness - Infectious Disease History Infectious Disease History: Reports: Chicken Pox - Past Surgical History Head Surgeries/Procedures: Reports: None GI Surgical History: Reports: Appendectomy, Cholecystectomy, Other (See Below) Other GI Surgeries/Procedures: Abdominoplasty Female Surgical History: Reports: Breast Implant, Other (See Below) Other Female Surgeries/Procedures: has a Sacral Neuromodulator implanted in her back to stimulate bladder to empty - SUBSTANCE USE Smoking Status *Q: Never Smoker Second Hand Smoke Exposure: No Days Per Week of Alcohol Use: 0 Recreational Drug Use History: No - HOME MEDS Home Medications: Home Meds Spironolactone [Aldactone] 100 mg PO BEDTIME 11/14/18 [History] Topiramate 50 mg PO BID 11/14/18 [History] traZODone HCl [Trazodone HCl] 100 mg PO BEDTIME 11/14/18 [History] oxyCODONE 1 tab PO Q4HR PRN 04/28/20 [History] - CURRENT (IN HOUSE) MEDS Current Meds: Current Medications Acetaminophen (Tylenol Extra Strength) 500 mg PO Q6H PRN PRN Reason: Headache/Pain Last Admin: 04/29/20 00:19 Dose: 500 mg Documented by: Hydromorphone HCl (Dilaudid) 1 mg IVPUSH Q3H PRN PRN Reason: Pain Last Admin: 04/29/20 05:43 Dose: 1 mg Documented by: Lactated Ringer's (Ringers, Lactated) 1,000 mls @ 125 mls/hr IV ASDIRECTED LISA Last Admin: 04/29/20 05:46 Dose: 125 mls/hr Documented by: Pantoprazole Sodium 40 mg/ (Sodium Chloride) 10 mls @ 300 mls/hr IV DAILY [facility] Last Admin: 04/28/20 08:26 Dose: 300 mls/hr Documented by: Ondansetron HCl (Zofran) 4 mg IVPUSH Q4H PRN PRN Reason: Nausea/Vomiting Last Admin: 04/29/20 05:43 Dose: 4 mg Documented by: Oxycodone HCl (Oxycodone) 5 mg PO Q4H PRN PRN Reason: Pain Last Admin: 04/29/20 00:18 Dose: 5 mg Documented by: Sodium Chloride (Saline Flush) 10 ml FLUSH ASDIRECTED PRN PRN Reason: Keep Vein Open Sodium Chloride (Saline Flush) 2.5 ml FLUSH ASDIRECTED PRN PRN Reason: Keep Vein Open Sodium Chloride (Saline Flush) 10 ml FLUSH ASDIRECTED PRN PRN Reason: Keep Vein Open Sodium Chloride (Saline Flush) 2.5 ml FLUSH ASDIRECTED PRN PRN Reason: Keep Vein Open Sodium Chloride (Normal Saline) 10 ml IV ASDIRECTED PRN PRN Reason: IV Use Discontinued Medications Sodium Chloride (Normal Saline) 1,000 mls @ 999 mls/hr IV .Bolus ONE Stop: 04/28/20 00:15 Last Admin: 04/27/20 23:34 Dose: 999 mls/hr Documented by: Ceftriaxone Sodium 1 gm/ (Sodium Chloride) 50 mls @ 200 mls/hr IV ONETIME ONE Stop: 04/28/20 01:40 Last Admin: 04/28/20 01:42 Dose: Not Given Documented by: Ceftriaxone Sodium/Dextrose 1 (gm/ Premix) 50 mls @ 100 mls/hr IV ONETIME ONE Stop: 04/28/20 02:10 Last Admin: 04/28/20 01:51 Dose: 100 mls/hr Documented by: Cefazolin Sodium/Dextrose 1 gm (/ Premix) 50 mls @ 100 mls/hr IV ONCALL PRN PRN Reason: surgery Stop: 04/28/20 17:25 Ketorolac Tromethamine (Toradol) 15 mg IVPUSH ONETIME ONE Stop: 04/27/20 23:16 Last Admin: 04/27/20 23:35 Dose: 15 mg Documented by: Magnesium Sulfate (Magnesium Sulfate In Water Premix) 2 gm IV ONETIME ONE Stop: 04/28/20 13:59 Last Admin: 04/28/20 15:17 Dose: 2 gm Documented by: Morphine Sulfate (Morphine) 8 mg IVPUSH ONETIME ONE Stop: 04/27/20 23:16 Last Admin: 04/27/20 23:36 Dose: 8 mg Documented by: Morphine Sulfate (Morphine) 2 mg IVPUSH Q4H PRN PRN Reason: Pain Last Admin: 04/28/20 08:26 Dose: 2 mg Documented by: Morphine Sulfate (Morphine) 4 mg IVPUSH Q3H PRN PRN Reason: Pain Last Admin: 04/28/20 15:47 Dose: 4 mg Documented by: Ondansetron HCl (Zofran) 4 mg IVPUSH ONETIME ONE Stop: 04/27/20 23:16 Last Admin: 04/27/20 23:34 Dose: 4 mg Documented by: Oxycodone/Acetaminophen (Percocet 325-10 Mg) 1 tab PO ONETIME ONE Stop: 04/28/20 01:21 Last Admin: 04/28/20 01:51 Dose: 1 tab Documented by:
[2020-04-29] MEDS ORDERED: Sodium Chloride 0.9% 2.5 ML Syringe FLUSH PRN (08:00)
[2020-04-29] MEDS ORDERED: Sodium Chloride 0.9% 10 ML Syringe FLUSH PRN (08:00)
[2020-04-29] MEDS ORDERED: Sodium Chloride 0.9% 10 ML SDV IV PRN (08:00)
--- NOTE | 2020-04-29 08:13 | PCM.PN ---
- General Info Date of Service: 04/29/20 Admission Dx/Problem (Free Text): Admission Diagnosis/Problem Admission Diagnosis/Problem Flank pain Subjective Update: Continues to have pain to R flank no chest pain or SOB. reports Dr Ledesma is taking her for stent placement today. Functional Status: Reports: Ambulating, Urinating. Denies: Pain Controlled - Review of Systems General: Reports: No Symptoms. Denies: Fatigue, Malaise HEENT: Reports: No Symptoms Pulmonary: Reports: No Symptoms. Denies: Shortness of Breath Cardiovascular: Reports: No Symptoms. Denies: Chest Pain Gastrointestinal: Reports: No Symptoms. Denies: Abdominal Pain, Nausea, Vomiting Genitourinary: Reports: Flank Pain. Denies: Dysuria, Frequency Musculoskeletal: Reports: No Symptoms Skin: Reports: No Symptoms Neurological: Reports: No Symptoms Psychiatric: Reports: No Symptoms - Patient Data Vitals - Most Recent: Last Vital Signs Temp 98.1 F 04/29/20 07:30 Pulse 72 04/29/20 07:30 Resp 16 04/29/20 07:30 BP 102/62 04/29/20 07:30 Pulse Ox 97 04/29/20 07:30 Weight - Most Recent: 57.663 kg I&O - Last 24 Hours: Intake & Output 04/28/20 04/29/20 04/29/20 22:59 06:59 14:59 Intake Total 1386 2200 Output Total 1700 Balance 1386 500 Lab Results Last 24 Hours: Laboratory Results - last 24 hr 04/29/20 04/29/20 Range/Units 05:10 05:10 WBC 6.88 (4.0-11.0) K/uL RBC 3.54 L (4.30-5.90) M/uL Hgb 11.0 L (12.0-16.0) g/dL Hct 33.0 L (36.0-46.0) % MCV 93.2 (80.0-98.0) fL MCH 31.1 (27.0-32.0) pg MCHC 33.3 (31.0-37.0) g/dL RDW Std Deviation 40.9 (28.0-62.0) fl RDW Coeff of Elliot 12 (11.0-15.0) % Plt Count 163 (150-400) K/uL MPV 10.80 (7.40-12.00) fL Neut % (Auto) 62.4 (48.0-80.0) % Lymph % (Auto) 28.6 (16.0-40.0) % [place] % (Auto) 7.4 (0.0-15.0) % Eos % (Auto) 1.5 (0.0-7.0) % Baso % (Auto) 0.1 (0.0-1.5) % Neut # (Auto) 4.3 (1.4-5.7) K/uL Lymph # (Auto) 2.0 (0.6-2.4) K/uL [place] # (Auto) 0.5 (0.0-0.8) K/uL Eos # (Auto) 0.1 (0.0-0.7) K/uL Baso # (Auto) 0.0 (0.0-0.1) K/uL Nucleated RBC % 0.0 /100WBC Nucleated RBCs # 0 K/uL Sodium 141 (136-145) mmol/L Potassium 4.0 (3.5-5.1) mmol/L Chloride 109 H (98-107) mmol/L Carbon Dioxide 23.8 (21.0-32.0) mmol/L BUN 7 (7.0-18.0) mg/dL Creatinine 0.8 (0.6-1.0) mg/dL Est Cr Clr Drug Dosing 82.33 mL/min Estimated GFR (MDRD) > 60.0 ml/min Glucose 82 (74-106) mg/dL Calcium 8.0 L (8.5-10.1) mg/dL Med Orders - Current: Current Medications Acetaminophen (Tylenol Extra Strength) 500 mg PO Q6H PRN PRN Reason: Headache/Pain Last Admin: 04/29/20 00:19 Dose: 500 mg Documented by: Hydromorphone HCl (Dilaudid) 1 mg IVPUSH Q3H PRN PRN Reason: Pain Last Admin: 04/29/20 05:43 Dose: 1 mg Documented by: Lactated Ringer's (Ringers, Lactated) 1,000 mls @ 125 mls/hr IV ASDIRECTED LISA Last Admin: 04/29/20 05:46 Dose: 125 mls/hr Documented by: Pantoprazole Sodium 40 mg/ (Sodium Chloride) 10 mls @ 300 mls/hr IV DAILY LISA Last Admin: 04/28/20 08:26 Dose: 300 mls/hr Documented by: Ondansetron HCl (Zofran) 4 mg IVPUSH Q4H PRN PRN Reason: Nausea/Vomiting Last Admin: 04/29/20 05:43 Dose: 4 mg Documented by: Oxycodone HCl (Oxycodone) 5 mg PO Q4H PRN PRN Reason: Pain Last Admin: 04/29/20 00:18 Dose: 5 mg Documented by: Sodium Chloride (Saline Flush) 10 ml FLUSH ASDIRECTED PRN PRN Reason: Keep Vein Open Sodium Chloride (Saline Flush) 2.5 ml FLUSH ASDIRECTED PRN PRN Reason: Keep Vein Open Sodium Chloride (Saline Flush) 10 ml FLUSH ASDIRECTED PRN PRN Reason: Keep Vein Open Sodium Chloride (Saline Flush) 2.5 ml FLUSH ASDIRECTED PRN PRN Reason: Keep Vein Open Sodium Chloride (Normal Saline) 10 ml IV ASDIRECTED PRN PRN Reason: IV Use Discontinued Medications Sodium Chloride (Normal Saline) 1,000 mls @ 999 mls/hr IV .Bolus ONE Stop: 04/28/20 00:15 Last Admin: 04/27/20 23:34 Dose: 999 mls/hr Documented by: Ceftriaxone Sodium 1 gm/ (Sodium Chloride) 50 mls @ 200 mls/hr IV ONETIME ONE Stop: 04/28/20 01:40 Last Admin: 04/28/20 01:42 Dose: Not Given Documented by: Ceftriaxone Sodium/Dextrose 1 (gm/ Premix) 50 mls @ 100 mls/hr IV ONETIME ONE Stop: 04/28/20 02:10 Last Admin: 04/28/20 01:51 Dose: 100 mls/hr Documented by: Cefazolin Sodium/Dextrose 1 gm (/ Premix) 50 mls @ 100 mls/hr IV ONCALL PRN PRN Reason: surgery Stop: 04/28/20 17:25 Ketorolac Tromethamine (Toradol) 15 mg IVPUSH ONETIME ONE Stop: 04/27/20 23:16 Last Admin: 04/27/20 23:35 Dose: 15 mg Documented by: Magnesium Sulfate (Magnesium Sulfate In Water Premix) 2 gm IV ONETIME ONE Stop: 04/28/20 13:59 Last Admin: 04/28/20 15:17 Dose: 2 gm Documented by: Morphine Sulfate (Morphine) 8 mg IVPUSH ONETIME ONE Stop: 04/27/20 23:16 Last Admin: 04/27/20 23:36 Dose: 8 mg Documented by: Morphine Sulfate (Morphine) 2 mg IVPUSH Q4H PRN PRN Reason: Pain Last Admin: 04/28/20 08:26 Dose: 2 mg Documented by: Morphine Sulfate (Morphine) 4 mg IVPUSH Q3H PRN PRN Reason: Pain Last Admin: 04/28/20 15:47 Dose: 4 mg Documented by: Ondansetron HCl (Zofran) 4 mg IVPUSH ONETIME ONE Stop: 04/27/20 23:16 Last Admin: 04/27/20 23:34 Dose: 4 mg Documented by: Oxycodone/Acetaminophen (Percocet 325-10 Mg) 1 tab PO ONETIME ONE Stop: 04/28/20 01:21 Last Admin: 04/28/20 01:51 Dose: 1 tab Documented by: - Exam General: Alert, Oriented, Cooperative, No Acute Distress Lungs: Clear to Auscultation, Normal Respiratory Effort Cardiovascular: Regular Rate, Regular Rhythm GI/Abdominal Exam: Normal Bowel Sounds, Soft, Non-Tender Back Exam: Normal Inspection, Full Range of Motion, CVA Tenderness (R) Extremities: Normal Inspection, Normal Range of Motion, Non-Tender, No Pedal Edema Psy/Mental Status: Alert, Normal Affect, Normal Mood Sepsis Event Note - Evaluation Sepsis Screening Result: No Definite Risk - Focused Exam Vital Signs: Vital Signs Temp Pulse Resp BP BP Pulse Ox 04/29/20 07:30 98.1 F 72 16 102/62 97 04/29/20 04:00 72 18 109/78 98 04/29/20 00:00 69 14 107/70 98 04/28/20 20:36 97.4 F 70 18 110/61 99 - Problem List & Annotations (1) Hydronephrosis, right SNOMED Code(s): 72744787 Code(s): N13.30 - UNSPECIFIED HYDRONEPHROSIS Status: Acute Current Visit: Yes (2) Flank pain SNOMED Code(s): 186367319 Code(s): R10.9 - UNSPECIFIED ABDOMINAL PAIN Status: Acute Current Visit: Yes - Problem List Review Problem List Initiated/Reviewed/Updated: Yes - My Orders Last 24 Hours: My Active Orders 04/28/20 Lunch Clear Liquid Diet [DIET] 04/28/20 14:01 Diversified Crops Farmer Discontinue [Cardiac Monitoring Discontinue] [RC] Click to Edit 04/28/20 14:02 Intake and Output Strict [RC] ASDIRECTED Resuscitation Status Routine 04/28/20 16:21 HYDROmorphone [Dilaudid] 1 mg IVPUSH Q3H PRN 04/30/20 05:11 BMP [BASIC METABOLIC PANEL,BMP] [CHEM] AM CBC WITH AUTO DIFF [HEME] AM - Plan Plan:: This 39 year old female admitted with R flank pain and CT findings of hydronephrosis s/p stent placement/removal 1. R flank pain, Hydronephrosis - Recently have stent placement and removal of stent on the right for stone removal. Dr Ocampo at [facility] completed surgery - I spoke with Dr Ocampo this morning, read him the CT he felt this could be related to post operative edema and stent removal edema. [place] if her pain was out of control, that he would recommended stent placement again or conservative management with IVF and pain control for 24-48 hours would be appropriate. Treat infection if suspected, but based on labwork and UA this is not evident. - Dr Ledesma, our urologist consulted and will place stent today - Dilaudid 3 hours IV PRN pain - LR 125 for now - Encouraged ambulation with IS use every 1 hour VTE prophylaxis: SCDs and ambulation Consult: Dr Ledesma Dispo: 1-2 days pending improvement
[2020-04-29] MEDS: Pantoprazole 40 MG in Sodium Chloride 0.9% 10 ML IV SCH (08:26)
[2020-04-29] MEDS ORDERED: fentaNYL 100 MCG/2 ML SDV ONE (10:31)
[2020-04-29] MEDS ORDERED: Propofol 200 MG/20 ML SDV ONE ×2 (10:31→11:23)
[2020-04-29] MEDS ORDERED: Midazolam 1 MG/ML 2 ML SDV ONE (10:31)
[2020-04-29] MEDS ORDERED: Dexamethasone 4 MG/ML 5 ML MDV ONE (10:31)
[2020-04-29] MEDS ORDERED: Ketorolac 30 MG/ML SDV ONE (10:31)
[2020-04-29] MEDS ORDERED: Glycopyrrolate 0.2 MG/ML SDV ONE (10:31)
[2020-04-29] MEDS ORDERED: Ondansetron 4 MG/2 ML SDV ONE (10:31)
[2020-04-29] MEDS ORDERED: Iopamidol 408 MG/ML 20 ML SDV ONE (10:56)
[2020-04-29] MEDS ORDERED: HYDROmorphone 1 MG/ML Syringe IVPUSH ONE (11:35)
--- NOTE | 2020-04-29 12:27 | PCM.POSTAN ---
POST ANESTHESIA ASSESSMENT - MENTAL STATUS Mental Status: Alert, Oriented - VITAL SIGNS Vital Signs: Last Vital Signs Temp 99.3 F 04/29/20 12:03 Pulse 63 04/29/20 12:22 Resp 13 04/29/20 12:22 BP 112/72 04/29/20 12:22 Pulse Ox 98 04/29/20 12:22 - RESPIRATORY Respiratory Status: Respiratory Rate WNL, Airway Patent, O2 Saturation Stable - CARDIOVASCULAR CV Status: Pulse Rate WNL, Blood Pressure Stable - GASTROINTESTINAL GI Status: No Symptoms - POST OP HYDRATION Hydration Status: Adequate & Stable
[2020-04-29 15:34] VITALS: BP 104/73; PULSE 69
--- NOTE | 2020-04-29 16:03 | PCM.DCSUM1 ---
Discharge Summary - Hospital Course Brief History: This 39 year old female with pmh of urinary frequency syndrome, mixed urinary incontinence and recurrent UTIs with recently R ureter stent placement and lithotripsy for non obstructing renal stones presented to the ED with complaints of R flank pain. She had Procedure about 1 week ago and removed the stent on Tuesday. She reports she was starting to feel ill on tuesday with N/V and poor appetite along with dysuria and flank pain. She reports after the stent was removed she had a significant increase in pain which continued through the weekend. She attempted to call her surgeon but couldn't get through. She came to the ER here to be evaluated. She reports she has noticed some hematuria and dark urine. Flank pain is sharp and feels like her "kidney is huge". Denies fevers or chills, no chest pain or SOB. No diarrhea or constipation. No focal neurological deficits. No tobacco use, no alcohol use and no recreational drug use. Int he ED labwork stable, Hgb 12.2 BUN 13 Cr 1.1 UA negative, excepted for large blood. CT revealed moderate R obstructive uropathy, apparent focus of soft tissue prominence in the region of the distal R ureter and ovid soft tissue density in the posterior R bladder in the region of the UVJ, which could represent edema and or hematomas Subtle ground glass opacities noted in R lung base. Dr Ledesma notified in the ED, recommended admission with Hospitalist. Dr Steve Ocampo from [facility] completed procedures. - Discharge Data Discharge Date: 04/29/20 Discharge Disposition: Home, Self-Care 01 Condition: Good - Referral to Home Health Primary Care Physician: Kaleigh De Oliveira NP - Discharge Diagnosis/Problem(s) (1) Hydronephrosis, right SNOMED Code(s): 75874975 ICD Code: N13.30 - UNSPECIFIED HYDRONEPHROSIS Status: Acute (2) Flank pain SNOMED Code(s): 914866330 ICD Code: R10.9 - UNSPECIFIED ABDOMINAL PAIN Status: Acute - Patient Summary/Data Consults: Consultations 04/28/20 03:30 Consult to Physician [CONS] Routine Hospital Course: Admitting Diagnoses: R flank pain R hydronephrosis Discharge Diagnoses: R flank pain R hydronephrosis Nery was admitted secondary to R flank pain. CT revealed R hydronephrosis, no renal stones noted. She was given pain medications as well as IVFs. Dr Ledesma, urology was consulted for further evaluation due to recent urological procedure and stent placement in [place] with Dr Ocampo. He recommended replacing stent, which was done today, 04/29. Please see consultation note. Post procedure Nery was feeling improved, continued to have some pain, but was better than previously. She was very eager to go home, Tolerating diet and voiding well. She was counseled to return to the ED for fevers, chills or worsening flank pain. Stent to remain in place for [address] Ledesma, she will have follow up with him next week. I gave her Oxycodone 5 mg PO every 4-6 hours PRN pain no refills. She is to return to ED or clinic if concerns should arise. - Patient Instructions Diet: Usual Diet as Tolerated Activity: As Tolerated Driving: Do Not Drive Showering/Bathing: Shower in AM (see me in one week) - Discharge Plan *PRESCRIPTION DRUG MONITORING PROGRAM REVIEWED*: Not Applicable *COPY OF PRESCRIPTION DRUG MONITORING REPORT IN PATIENT TRAY: Not Applicable Prescriptions/Med Rec: oxyCODONE 5 mg PO Q4HR PRN #30 tab PRN Reason: Pain Home Medications: Home Meds Spironolactone [Aldactone] 100 mg PO BEDTIME 11/14/18 [History] Topiramate 50 mg PO BID 11/14/18 [History] traZODone HCl [Trazodone HCl] 100 mg PO BEDTIME 11/14/18 [History] oxyCODONE 5 mg PO Q4HR PRN #30 tab 04/29/20 [Rx] Oxygen Therapy Mode: Room Air Patient Handouts: Ureteroscopy, Oxycodone tablets or capsules, Kidney Stones, [id number], Cystoscopy, Ureteroscopy, Care After Referrals: Kaleigh De Oliveira NP [Primary Care Provider] - 05/05/20 9:45 am (Please arrive 15 minutes early with your identification, insurance cards and your own facemask.) David Ledesma MD [Physician] - (1 week follow-up.Dr. Ledesma's nurse will call you once appointment is scheduled for next week.) - Discharge Summary/Plan Comment DC Time >30 min.: No - Patient Data Vitals - Most Recent: Last Vital Signs Temp 98.3 F 04/29/20 14:29 Pulse 69 04/29/20 15:00 Resp 16 04/29/20 15:00 BP 104/73 04/29/20 15:00 Pulse Ox 98 04/29/20 15:00 Weight - Most Recent: 57.663 kg I&O - Last 24 hours: Intake & Output 04/29/20 04/29/20 04/29/20 06:59 14:59 22:59 Intake Total 2200 550 Output Total 1700 Balance 500 550 Lab Results - Last 24 hrs: Laboratory Results - last 24 hr 04/29/20 04/29/20 Range/Units 05:10 05:10 WBC 6.88 (4.0-11.0) K/uL RBC 3.54 L (4.30-5.90) M/uL Hgb 11.0 L (12.0-16.0) g/dL Hct 33.0 L (36.0-46.0) % MCV 93.2 (80.0-98.0) fL MCH 31.1 (27.0-32.0) pg MCHC 33.3 (31.0-37.0) g/dL RDW Std Deviation 40.9 (28.0-62.0) fl RDW Coeff of Elliot 12 (11.0-15.0) % Plt Count 163 (150-400) K/uL MPV 10.80 (7.40-12.00) fL Neut % (Auto) 62.4 (48.0-80.0) % Lymph % (Auto) 28.6 (16.0-40.0) % Levy % (Auto) 7.4 (0.0-15.0) % Eos % (Auto) 1.5 (0.0-7.0) % Baso % (Auto) 0.1 (0.0-1.5) % Neut # (Auto) 4.3 (1.4-5.7) K/uL Lymph # (Auto) 2.0 (0.6-2.4) K/uL Levy # (Auto) 0.5 (0.0-0.8) K/uL Eos # (Auto) 0.1 (0.0-0.7) K/uL Baso # (Auto) 0.0 (0.0-0.1) K/uL Nucleated RBC % 0.0 /100WBC Nucleated RBCs # 0 K/uL Sodium 141 (136-145) mmol/L Potassium 4.0 (3.5-5.1) mmol/L Chloride 109 H (98-107) mmol/L Carbon Dioxide 23.8 (21.0-32.0) mmol/L BUN 7 (7.0-18.0) mg/dL Creatinine 0.8 (0.6-1.0) mg/dL Est Cr Clr Drug Dosing 82.33 mL/min Estimated GFR (MDRD) > 60.0 ml/min Glucose 82 (74-106) mg/dL Calcium 8.0 L (8.5-10.1) mg/dL Med Orders - Current: Current Medications Acetaminophen (Tylenol Extra Strength) 500 mg PO Q6H PRN PRN Reason: Headache/Pain Last Admin: 04/29/20 00:19 Dose: 500 mg Documented by: Hydromorphone HCl (Dilaudid) 1 mg IVPUSH Q3H PRN PRN Reason: Pain Last Admin: 04/29/20 09:03 Dose: 1 mg Documented by: Lactated Ringer's (Ringers, Lactated) 1,000 mls @ 125 mls/hr IV ASDIRECTED [facility] Last Admin: 04/29/20 05:46 Dose: 125 mls/hr Documented by: Pantoprazole Sodium 40 mg/ (Sodium Chloride) 10 mls @ 300 mls/hr IV DAILY [facility] Last Admin: 04/29/20 08:26 Dose: 300 mls/hr Documented by: Ondansetron HCl (Zofran) 4 mg IVPUSH Q4H PRN PRN Reason: Nausea/Vomiting Last Admin: 04/29/20 05:43 Dose: 4 mg Documented by: Oxycodone HCl (Oxycodone) 5 mg PO Q4H PRN PRN Reason: Pain Last Admin: 04/29/20 14:41 Dose: 5 mg Documented by: Sodium Chloride (Saline Flush) 10 ml FLUSH ASDIRECTED PRN PRN Reason: Keep Vein Open Sodium Chloride (Saline Flush) 2.5 ml FLUSH ASDIRECTED PRN PRN Reason: Keep Vein Open Sodium Chloride (Saline Flush) 10 ml FLUSH ASDIRECTED PRN PRN Reason: Keep Vein Open Sodium Chloride (Saline Flush) 2.5 ml FLUSH ASDIRECTED PRN PRN Reason: Keep Vein Open Sodium Chloride (Normal Saline) 10 ml IV ASDIRECTED PRN PRN Reason: IV Use Spironolactone (Aldactone) 100 mg PO BEDTIME LISA Topiramate (Topamax) 50 mg PO BID LISA Discontinued Medications Dexamethasone (Dexamethasone) Confirm Administered Dose 20 mg .ROUTE .STK-MED ONE Stop: 04/29/20 10:32 Fentanyl (Sublimaze) Confirm Administered Dose 100 mcg .ROUTE .STK-MED ONE Stop: 04/29/20 10:32 Glycopyrrolate (Robinul) Confirm Administered Dose 0.2 mg .ROUTE .STK-MED ONE Stop: 04/29/20 10:32 Hydromorphone HCl (Dilaudid) 1 mg IVPUSH ONETIME ONE Stop: 04/29/20 11:36 Last Admin: 04/29/20 13:11 Dose: Not Given Documented by: Sodium Chloride (Normal Saline) 1,000 mls @ 999 mls/hr IV .Bolus ONE Stop: 04/28/20 00:15 Last Admin: 04/27/20 23:34 Dose: 999 mls/hr Documented by: Ceftriaxone Sodium 1 gm/ (Sodium Chloride) 50 mls @ 200 mls/hr IV ONETIME ONE Stop: 04/28/20 01:40 Last Admin: 04/28/20 01:42 Dose: Not Given Documented by: Ceftriaxone Sodium/Dextrose 1 (gm/ Premix) 50 mls @ 100 mls/hr IV ONETIME ONE Stop: 04/28/20 02:10 Last Admin: 04/28/20 01:51 Dose: 100 mls/hr Documented by: Cefazolin Sodium/Dextrose 1 gm (/ Premix) 50 mls @ 100 mls/hr IV ONCALL PRN PRN Reason: surgery Stop: 04/28/20 17:25 Acetaminophen (Ofirmev) Confirm Administered Dose 100 mls @ as directed .ROUTE .STK-MED ONE Stop: 04/29/20 10:34 Iopamidol (Isovue-M 200 (41%)) Confirm Administered Dose 20 ml .ROUTE .STK-MED ONE Stop: 04/29/20 10:57 Ketorolac Tromethamine (Toradol) 15 mg IVPUSH ONETIME ONE Stop: 04/27/20 23:16 Last Admin: 04/27/20 23:35 Dose: 15 mg Documented by: Ketorolac Tromethamine (Toradol) Confirm Administered Dose 30 mg .ROUTE .STK-MED ONE Stop: 04/29/20 10:32 Magnesium Sulfate (Magnesium Sulfate In Water Premix) 2 gm IV ONETIME ONE Stop: 04/28/20 13:59 Last Admin: 04/28/20 15:17 Dose: 2 gm Documented by: Midazolam HCl (Versed 1 Mg/Ml) Confirm Administered Dose 2 mg .ROUTE .STK-MED ONE Stop: 04/29/20 10:32 Morphine Sulfate (Morphine) 8 mg IVPUSH ONETIME ONE Stop: 04/27/20 23:16 Last Admin: 04/27/20 23:36 Dose: 8 mg Documented by: Morphine Sulfate (Morphine) 2 mg IVPUSH Q4H PRN PRN Reason: Pain Last Admin: 04/28/20 08:26 Dose: 2 mg Documented by: Morphine Sulfate (Morphine) 4 mg IVPUSH Q3H PRN PRN Reason: Pain Last Admin: 04/28/20 15:47 Dose: 4 mg Documented by: Ondansetron HCl (Zofran) 4 mg IVPUSH ONETIME ONE Stop: 04/27/20 23:16 Last Admin: 04/27/20 23:34 Dose: 4 mg Documented by: Ondansetron HCl (Zofran) Confirm Administered Dose 4 mg .ROUTE .STK-MED ONE Stop: 04/29/20 10:32 Oxycodone/Acetaminophen (Percocet 325-10 Mg) 1 tab PO ONETIME ONE Stop: 04/28/20 01:21 Last Admin: 04/28/20 01:51 Dose: 1 tab Documented by: Propofol (Diprivan 20 Ml) Confirm Administered Dose 200 mg .ROUTE .STK-MED ONE Stop: 04/29/20 10:32 Propofol (Diprivan 20 Ml) Confirm Administered Dose 200 mg .ROUTE .STK-MED ONE Stop: 04/29/20 11:24
--- NOTE | 2020-04-29 16:16 | CR ---
Abdomen: 2 fluoroscopic spot views were obtained of the right upper abdomen. Study shows stent placement. Pigtail and terminates within an upper pole calyx. Contrast has been injected. Surgical clips are noted from prior cholecystectomy. Fluoroscopy time given as 18.0 seconds. Impression: 1. Procedural study as noted above. Diagnostic code #2 Study was dictated in MDT
--- NOTE | 2020-04-29 16:19 | CONS ---
DATE OF CONSULTATION: 04/29/2020 DATE OF : 1980 PRIMARY CARE PHYSICIAN: CHRISTOPHER White HISTORY OF PRESENT ILLNESS: A 39-year-old. She was admitted to the hospital from the emergency room with right-sided abdominal pain. She apparently had ureteroscopy with stone extraction in [place] about a week prior to presentation. She had a CT scan done through the ER that showed right-sided hydronephrosis and hydroureter all the way down to the right lower ureter. She was admitted for pain control. UA was not suggestive of UTI. I reviewed her CT scan and visited with the patient. I did not see any stones on the CT scan, and I was not clear as to the nature of obstruction on the right lower ureter. PHYSICAL EXAMINATION: GENERAL: She is alert and oriented. HEART: Normal sinus rhythm. LUNGS: Clear. ABDOMEN: Right-sided mild tenderness. IMPRESSION: Right-sided hydronephrosis, status post right ureteroscopy and renoscopy with removal of stone. PLAN: Cystoscopy, possible ureteroscopy with double-J stent placement. My plan would be to leave that double-J stent in for 3 weeks, take it out, get another study to see if the problem is gone. If it is not, then I might have to balloon dilate that part of the ureter or possibly do ureterotomy if that is needed. SAHIL TUCKER /[id number]
[2020-04-29] MEDS ORDERED: Topiramate 50 MG Tab PO SCH (21:00)
[2020-04-29] MEDS ORDERED: Spironolactone 25 MG Tab PO SCH (21:00)
--- NOTE | 2020-04-30 14:15 | OR ---
SURGEON: David Ledesma M.D. DATE OF PROCEDURE: 04/29/2020 PREOPERATIVE DIAGNOSIS: Right-sided hydronephrosis and hydroureter. POSTOPERATIVE DIAGNOSIS: Right-sided hydronephrosis and hydroureter. OPERATION: Cystoscopy, right retrograde pyelogram, right ureteroscopy, and double-J stent placement. DESCRIPTION OF PROCEDURE: The patient was given general anesthesia, she was placed in dorsal lithotomy position, prepped and draped in sterile drapes. Cystourethroscopy was done and the bladder was normal. A guidewire was advanced in the right ureter that went up into the region of the kidney without difficulty. However, the direction of the guidewire was too medial, and I thought I better get a right retrograde pyelogram, so I put a 8-acorn ureteral catheter that actually went up into the ureter also without difficulty, and I was able to get the dye into the renal pelvis. Initial attempts at putting the dye in the distal ureter were not successful. The ureter has been dilated before, and I could not get the dye to go up the ureter which was coming back. The Glidewire was put in the right ureter, advanced into the renal pelvis, over which a 6-[place] 26 cm double-J stent was placed. Position was confirmed with fluoroscopy, the bladder was emptied, and the patient was moved to recovery room in good condition. PLAN: I will leave the stent in for 3 to 4 weeks, take it out in the office, get another study a week or 2 later to make sure the ureter is okay before doing anything else. CC: Dr. Ocampo, urologist, [place], [place] SAHIL / GARRETT /[id number]
== END 2020-04-29 17:00 | disposition home or self-care (01) ==
LOC: MW.ED 22:27 → MW.MS 04-28 01:24
PROVIDERS: ADMIT Student in an Organized Health Care Education/Training Program; ATTEND Student in an Organized Health Care Education/Training Program
DX: N13.4 Hydroureter (principal); J45.909 Unspecified asthma, uncomplicated; Z20.828 Contact with and (suspected) exposure to other viral communicable diseases; Z01.812 Encounter for preprocedural laboratory examination; Z88.2 Allergy status to sulfonamides; Z88.1 Allergy status to other antibiotic agents; Z87.442 Personal history of urinary calculi; Z98.890 Other specified postprocedural states
CPT/HCPCS: 36415; 52332; 52351; 74176; 76000; 80048; 80053; 81001; 81025; 83605; 83735; 84100; 85025; 87635; 96361; 96365; 96375; 96376; 99285; A9270; C1769; C2617; C9113; G0378; J0131; J0696; J1100; J1170; J1885; J2250; J2270; J2405; J2704; J3010; J3475; J3490; J7030; J7050; J7120; Q9966; 00918; 99283; U0002

== ENCOUNTER 2021-02-16 14:35 | Emergency (ER) | payer OTHER ==
--- NOTE | 2021-02-16 16:29 | EDM.PDOC ---
ED HPI GENERAL MEDICAL PROBLEM - General Chief Complaint: SITE ADMINISTRATOR Problem Stated Complaint: MATTY BROEMMA 18 WEEKS Time Seen by Provider: 02/16/21 14:38 - History of Present Illness INITIAL COMMENTS - FREE TEXT/NARRATIVE: CHIEF COMPLAINT(S): "I think my water broke." HISTORY OF PRESENT ILLNESS: This is a 40-year-old woman who is approximately 18 weeks gestation who comes to the emergency department with a chief complaint of "I think my water broke." The patient states that she does follow with [facility] here in [facility]. She states that all of her ultrasounds and everything thus far have been normal. She states that today while sitting at her desk prior to arrival she felt a huge gush of fluid and she is concerned that her water broke. She denies any trauma to her abdomen. She denies any abdominal pain, pelvic pain, vaginal bleeding, vaginal discharge, dysuria, hematuria, back pain. She denies any fevers or chills. She denies any other symptoms. REVIEW OF SYSTEMS: Constitutional: Denies fever, chills. Eyes: Denies eye pain Ears, Nose, Mouth, & Throat: Denies earache Cardiovascular: Denies chest pain Respiratory: Denies shortness of breath Gastrointestinal: Denies Nausea, vomiting, diarrhea, hematochezia. Genitourinary: Positive for fluid leakage. Denies hematuria, dysuria, vaginal bleeding, vaginal discharge, cramping Skin:Denies a rash MSK: Denies joint pain Neurological: Denies blurred vision Psychiatric: Denies depression PAST MEDICAL HISTORY: As per history of present illness and as reviewed below otherwise noncontributory. SURGICAL HISTORY: As per history of present illness and as reviewed below otherwise noncontributory. SOCIAL HISTORY: As per history of present illness and as reviewed below otherwise noncontributory. FAMILY HISTORY: As per history of present illness and as reviewed below otherwise noncontributory. EXAMINATION OF ORGAN SYSTEMS/BODY AREAS: Constitutional: Blood pressure was 138/69, heart rate 107, respiratory rate 17 with an oxygen saturation of 100% on room air. Temperature 36.8 General: Young woman who does not appear to be in acute distress but is tearful Psychiatric: Appropriate mood and affect. Eyes: No scleral icterus or conjunctival erythema ENMT: Moist mucous membranes. No pharyngeal erythema Cardiovascular: Regular, rate, and rhythm. No gallops, murmurs, or rubs. Bilateral upper extremity pulses symmetric and intact. No peripheral edema. No JVD. Respiratory: Lungs clear to auscultation bilaterally. No wheezes, rales, or rhonchi. Gastrointestinal: Soft, non-tender, non-distended. Normoactive bowel sounds Genitourinary: No suprapubic tenderness gravid abdomen. Musculoskeletal: Normal range of motion. Skin: No lesions or abrasions. Neurological: Alert, GCS 15 MEDICAL DECISION MAKING AND COURSE IN THE ED WITH INTERPRETATION/REVIEW OF DIAGNOSTIC STUDIES: This is a 40-year-old who is approximately 18 weeks gestation who comes to the emergency department with sudden onset fluid leakage from her vagina. At this time the concern is rupture of membranes versus premature labor. At this time we did obtain an amnisure rupture test and was performed with AJ Zamora in presence. I did perform a bedside ultrasound which did reveal a single live intrauterine gestation with a heart rate present. There was no amniotic fluid present on bedside ultrasound. There was no evidence of placenta previa. At this time with same RN hotel concierge in presence I did perform a bimanual examination which did reveal a 1 finger cervical dilation. No vaginal bleeding or pain. At this time I did discuss that we would obtain the AmniSure rupture test and if positive I would need to contact her cable puller. She was amenable to this plan. Will obtain CBC, BMP. Laboratory: Amnisure rupture membrane test was positive. I contacted [facility] on-call physician and they stated that Dr. Ambriz would be coming in to evaluate the patient and discuss options. They recommended obtaining a transvaginal ultrasound. I did discuss that Dr. Ambriz will be coming in to evaluate her that we would need an ultrasound. She was amenable to this plan. The radiological images were viewed by myself along with reading the report from the radiologist. Transabdominal OB ultrasound reveals single live intrauterine gestation in cephalic presentation with regular cardiac activity. Dating estimated at 18 weeks 1 day. There is oligohydramnios consistent with premature rupture of membranes. Laboratory: CBC reveals a normocytic anemia with hemoglobin of 11.5 hematocrit of 32.5 otherwise unremarkable. BMP is unremarkable except for hypocalcemia at 8.4. Dr. Ambriz did discuss options with the patient after ultrasound. They elected for expectant management. They are to follow-up with OB in 1 week and to return with any new or worsening symptoms. She was amenable discharge at this time and had no further questions. DISPOSITION: The patient was discharged home in stable condition. The patient will follow up with cable puller in 1 week at her scheduled appointment CONDITION: Fair PROCEDURES: Bedside transabdominal OB ultrasound FINAL IMPRESSION(S)/DIAGNOSES: 1. Acute premature rupture of membranes Victor M Deleon M.D. - Related Data Allergies Allergy/AdvReac Type Severity Reaction Status Date / Time sulfamethoxazole Allergy Rash Verified 02/16/21 14:40 [From Bactrim] tamsulosin [From Flomax] Allergy Itching Verified 02/16/21 14:40 trimethoprim [From Bactrim] Allergy Rash Verified 02/16/21 14:40 Home Meds: Home Meds Pnv No.95/Ferrous Fum/Folic AC [ Vitamin Tablet] 1 each PO DAILY 02/16/21 [History] Past Medical History HEENT History: Reports: Other (See Below) Other HEENT History: wears glasses/contacts Respiratory History: Reports: Asthma Other Respiratory History: exercised induced asthma Genitourinary History: Reports: UTI, Recurrent Other Genitourinary History: 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 Musculoskeletal History: Reports: Fracture Other Musculoskeletal History: hx of fx tibia and foot Neurological History: Reports: Concussion, Migraines Other Neuro History: takes topirimate BID for migraines, hx of motion sickness - Infectious Disease History Infectious Disease History: Reports: Chicken Pox - Past Surgical History Head Surgeries/Procedures: Reports: None GI Surgical History: Reports: Appendectomy, Cholecystectomy, Other (See Below) Other GI Surgeries/Procedures: Abdominoplasty Female Surgical History: Reports: Breast Implant, Other (See Below) Other Female Surgeries/Procedures: has a Sacral Neuromodulator implanted in her back to stimulate bladder to empty Social & Family History - Family History Family Medical History: No Pertinent Family History - Tobacco Use Tobacco Use Status *Q: Never Tobacco User - Caffeine Use Caffeine Use: Reports: Coffee - Recreational Drug Use Recreational Drug Use: No ED ROS GENERAL - Review of Systems Review Of Systems: See Below ED EXAM, GENERAL - Physical Exam Exam: See Below Course - Vital Signs Last Recorded V/S: Last Vital Signs Temp 36.8 C 02/16/21 14:38 Pulse 86 02/16/21 17:10 Resp 17 02/16/21 14:38 BP 98/52 L 02/16/21 17:10 Pulse Ox 96 02/16/21 17:10 - Orders/Labs/Meds Labs: Laboratory Tests 02/16/21 02/16/21 02/16/21 Range/Units 14:46 16:42 16:45 WBC 9.60 (4.0-11.0) K/uL RBC 3.58 L (4.30-5.90) M/uL Hgb 11.5 L (12.0-16.0) g/dL Hct 32.5 L (36.0-46.0) % MCV 90.8 (80.0-98.0) fL MCH 32.1 H (27.0-32.0) pg MCHC 35.4 (31.0-37.0) g/dL RDW Std Deviation 43.1 (28.0-62.0) fl RDW Coeff of Elliot 13 (11.0-15.0) % Plt Count 179 (150-400) K/uL MPV 11.10 (7.40-12.00) fL Neut % (Auto) 80.7 H (48.0-80.0) % Lymph % (Auto) 12.1 L (16.0-40.0) % [place] % (Auto) 6.6 (0.0-15.0) % Eos % (Auto) 0.5 (0.0-7.0) % Baso % (Auto) 0.1 (0.0-1.5) % Neut # (Auto) 7.8 H (1.4-5.7) K/uL Lymph # (Auto) 1.2 (0.6-2.4) K/uL [place] # (Auto) 0.6 (0.0-0.8) K/uL Eos # (Auto) 0.1 (0.0-0.7) K/uL Baso # (Auto) 0.0 (0.0-0.1) K/uL Nucleated RBC % 0.0 /100WBC Nucleated RBCs # 0 K/uL Sodium (136-145) mmol/L Potassium (3.5-5.1) mmol/L Chloride (98-107) mmol/L Carbon Dioxide (21.0-32.0) mmol/L BUN (7.0-18.0) mg/dL Creatinine (0.6-1.0) mg/dL Est Cr Clr Drug Dosing mL/min Estimated GFR (MDRD) ml/min Glucose (74-106) mg/dL Calcium (8.5-10.1) mg/dL Membrane Rupture POSITIVE Cordelia species DNA NEGATIVE (NEGATIVE) Gardnerella DNA Probe NEGATIVE (NEGATIVE) Trichomonas DNA Probe NEGATIVE (NEGATIVE) 02/16/21 Range/Units 16:45 WBC (4.0-11.0) K/uL RBC (4.30-5.90) M/uL Hgb (12.0-16.0) g/dL Hct (36.0-46.0) % MCV (80.0-98.0) fL MCH (27.0-32.0) pg MCHC (31.0-37.0) g/dL RDW Std Deviation (28.0-62.0) fl RDW Coeff of Elliot (11.0-15.0) % Plt Count (150-400) K/uL MPV (7.40-12.00) fL Neut % (Auto) (48.0-80.0) % Lymph % (Auto) (16.0-40.0) % [place] % (Auto) (0.0-15.0) % Eos % (Auto) (0.0-7.0) % Baso % (Auto) (0.0-1.5) % Neut # (Auto) (1.4-5.7) K/uL Lymph # (Auto) (0.6-2.4) K/uL [place] # (Auto) (0.0-0.8) K/uL Eos # (Auto) (0.0-0.7) K/uL Baso # (Auto) (0.0-0.1) K/uL Nucleated RBC % /100WBC Nucleated RBCs # K/uL Sodium 141 (136-145) mmol/L Potassium 3.5 (3.5-5.1) mmol/L Chloride 106 (98-107) mmol/L Carbon Dioxide 26.1 (21.0-32.0) mmol/L BUN 8 (7.0-18.0) mg/dL Creatinine 0.7 (0.6-1.0) mg/dL Est Cr Clr Drug Dosing 93.17 mL/min Estimated GFR (MDRD) > 60.0 ml/min Glucose 100 (74-106) mg/dL Calcium 8.4 L (8.5-10.1) mg/dL Membrane Rupture Cordelia species DNA (NEGATIVE) Gardnerella DNA Probe (NEGATIVE) Trichomonas DNA Probe (NEGATIVE) Departure - Departure Time of Disposition: 16:28 Disposition: Home, Self-Care 01 Condition: Fair Clinical Impression: premature rupture of membranes, Placenta accreta - Discharge Information *PRESCRIPTION DRUG MONITORING PROGRAM REVIEWED*: No *COPY OF PRESCRIPTION DRUG MONITORING REPORT IN PATIENT TRAY: No Instructions: Premature Rupture and Premature Rupture of Membranes, [id number] Referrals: Dori Ambriz MD [Primary Care Provider] - Forms: ED Department Discharge Additional Instructions: You were evaluated today on an emergent basis. At this time your membranes did rupture. As discussed with your cable puller please follow-up with them in 1 week as you have decided to try to take this to term. As discussed there is bed rest at home. If you have any vaginal bleeding, fever, vaginal discharge, worsening pelvic pain I would return to the emergency department. [facility] [address] [place] [address] [facility] [address] [place] [address] The patient is informed of any results of their evaluation and diagnostic workup and all questions are answered. They are given discharge instructions and return precautions. The patient is stable for discharge. The patient states they understand and agree with the plan and that they will return if their symptoms get worse or if they have any new concerns. The following information is given to patients seen in the emergency department who are being discharged to home. This information is to outline your options for follow-up care. We provide all patients seen in our emergency department with a follow-up referral. The need for follow-up, as well as the timing and circumstances, are variable depending upon the specifics of your emergency department visit. If you don't have a primary care physician on staff, we will provide you with a referral. We always advise you to contact your personal physician following an emergency department visit to inform them of the circumstance of the visit and for follow-up with them and/or the need for any referrals to a consulting specialist. The emergency department will also refer you to a specialist when appropriate. This referral assures that you have the opportunity for follow-up care with a specialist. All of these measure are taken in an effort to provide you with optimal care, which includes your follow-up. Under all circumstances we always encourage you to contact your private physician who remains a resource for coordinating your care. When calling for follow-up care, please make the office aware that this follow-up is from your recent emergency room visit. If for any reason you are refused follow-up, please contact the [facility] Emergency Department at and asked to speak to the emergency department charge nurse. Sepsis Event Note (ED) - Evaluation Sepsis Screening Result: No Definite Risk
--- NOTE | 2021-02-16 16:35 | US ---
HISTORY: Premature rupture of membranes. Evaluate SAMARA, placental location, heart rate. COMPARISON: None available of this gestation. TECHNIQUE: Ultrasound examination of the is performed with transabdominal technique. FINDINGS: A single intrauterine gestation is seen in cephalic presentation with regular cardiac activity at 172 beats per minute. The placenta is fundal and is free of the cervical os. The placental grade is I. There is oligohydramnios, with very decreased single deepest pocket of 1.4 centimeters, below the bottom normal of 2.0 centimeters. The cervix is nondilated with normal cervical length at 4.2 centimeters. BPD: 4.2 cm 18 weeks 6 days HC: 15.8 cm 18 weeks 5 days AC: 11.5 cm 17 weeks 2 days FL: 2.5 cm 17 weeks 5 days The estimated age by ultrasound is 18 weeks 1 day, with an estimated date of delivery of 07/19/2021. This correlates well with the clinical age of 17 weeks 6 days. The ultrasound ratios are normal. The estimated weight of 200 grams is at the 28th percentile based on the clinical dates. A anatomic survey is not performed. IMPRESSION: Single intrauterine gestation in cephalic presentation with regular cardiac activity. Estimated gestational age is 18 weeks 1 day. Estimated weight of 200 grams is at the 28th percentile based on the clinical dates. Oligohydramnios with single deepest pocket of 1.4 centimeters, consistent with premature rupture of membranes. Dictated by Cal Hussein MD @ 02/16/2021 4:33:[address] Cal Hussein @ Feb 16 2021 4:33PM
--- NOTE | 2021-02-16 16:50 | PCM.CONS ---
H&P History of Present Illness - General Date of Service: 02/16/21 Admit Problem/Dx: Rupture of membranes Source of Information: Patient History Limitations: Reports: No Limitations - History of Present Illness Initial Comments - Free Text/Narative: Patient presents with possible rupture of membranes around 1400 today. + movement. Denies cramping, foul-smelling discharge, fevers/chills, vaginal b leeding. - Related Data Allergies/Adverse Reactions: Allergies Allergy/AdvReac Type Severity Reaction Status Date / Time sulfamethoxazole Allergy Rash Verified 02/16/21 14:40 [From Bactrim] tamsulosin [From Flomax] Allergy Itching Verified 02/16/21 14:40 trimethoprim [From Bactrim] Allergy Rash Verified 02/16/21 14:40 Home Medications: Home Meds Pnv No.95/Ferrous Fum/Folic AC [ Vitamin Tablet] 1 each PO DAILY 02/16/21 [History] Past Medical History HEENT History: Reports: Other (See Below) Other HEENT History: wears glasses/contacts Respiratory History: Reports: Asthma Other Respiratory History: exercised induced asthma Genitourinary History: Reports: UTI, Recurrent Other Genitourinary History: 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 NURSING PROGRAM COORDINATOR History: Reports: Endometrial Ablation (2011) : 4 Para: 3 LMP (Approximate): (17w6d) Musculoskeletal History: Reports: Fracture Other Musculoskeletal History: hx of fx tibia and foot Neurological History: Reports: Concussion, Migraines Other Neuro History: takes topirimate BID for migraines, hx of motion sickness - Infectious Disease History Infectious Disease History: Reports: Chicken Pox - Past Surgical History Head Surgeries/Procedures: Reports: None GI Surgical History: Reports: Appendectomy, Cholecystectomy, Other (See Below) Other GI Surgeries/Procedures: Abdominoplasty Female Surgical History: Reports: Breast Implant, Endometrial Ablation (2011), Other (See Below) Other Female Surgeries/Procedures: has a Sacral Neuromodulator implanted in her back to stimulate bladder to empty Social & Family History - Family History Family Medical History: No Pertinent Family History - Tobacco Use Tobacco Use Status *Q: Never Tobacco User - Caffeine Use Caffeine Use: Reports: Coffee - Recreational Drug Use Recreational Drug Use: No H&P Review of Systems - Review of Systems: Review Of Systems: See Below General: Reports: No Symptoms HEENT: Reports: No Symptoms Pulmonary: Reports: No Symptoms Cardiovascular: Reports: No Symptoms Gastrointestinal: Reports: No Symptoms Genitourinary: Reports: Other (leakage of fluid) Musculoskeletal: Reports: No Symptoms Skin: Reports: No Symptoms Psychiatric: Reports: No Symptoms Neurological: Reports: No Symptoms Hematologic/Lymphatic: Reports: No Symptoms Immunologic: Reports: No Symptoms Exam - Exam Exam: See Below - Vital Signs Vital Signs: Last Vital Signs Temp 36.8 C 02/16/21 14:38 Pulse 107 H 02/16/21 14:38 Resp 17 02/16/21 14:38 BP 138/69 02/16/21 14:38 Pulse Ox 100 02/16/21 14:38 Weight: 61.235 kg - Exam General: Alert, Oriented, 4 Neck: Supple Lungs: Normal Respiratory Effort GI/Abdominal Exam: Soft, Non-Tender, Other (gravid) (Female) Exam: Normal External Exam, Other (amniotic fluid in vagina). No: Cervical Dilatation (visually closed), Vaginal Bleeding Rectal (Female) Exam: Deferred Extremities: Non-Tender, No Pedal Edema Skin: Warm, Dry, Intact Neuro Extensive - Mental Status: Alert, Oriented x3, Normal Mood/Affect Psychiatric: Alert, Normal Affect, Normal Mood - Patient Data Lab Results Last 24 hrs: Laboratory Results - last 24 hr 02/16/21 Range/Units 14:46 Membrane Rupture POSITIVE Sepsis Event Note - Evaluation Sepsis Screening Result: No Definite Risk - Focused Exam Vital Signs: Vital Signs Temp Pulse Resp BP Pulse Ox 02/16/21 14:38 36.8 C 107 H 17 138/69 100 *Q Meaningful Use (ADM) - VTE *Q VTE Mechanical Contraindications *Q: At Risk for Falls VTE Pharmacological Contraindications *Q: Risk of Bleeding VTE Anticoagulation Contraindications: Med/TX Not Indicated/Need - VTE Risk Assess *Q Each Risk Factor Represents 1 Point: or , Less than 1 Month Total Score 1 Point Risk Factors: 1 Each Risk Factor Represents 2 Points: None Total Score 2 Point Risk Factors: 0 Each Risk Factor Represents 3 Points: None Total Score 3 Point Risk Factors: 0 Each Risk Factor Represents 5 Points: None Total Score 5 Point Risk Factors: 0 Venous Thromboembolism Risk Factor Score *Q: 1 - Stroke *Q Aspirin Contraindications Stroke *Q: Other (Use Special Inst) (none) Anticoagulation Contraindications Stroke *Q: Med/TX Not Indicated/Need Antithrombotic Contraindications Stroke *Q: Med/TX Not Indicated/Need Thrombolytic/Fibrinolytic Contraindications Stroke *Q: Med/TX Not Indicated/Need Statin Contraindications Stroke *Q: Med/TX Not Indicated/Need Rehabilitation Assessment Contraindication *Q: Med/tx not indicated/need - AMI *Q Aspirin Contraindications AMI *Q: Med/TX Not Indicated/Need Thrombolytic/Fibrinolytic Contraindications IV (AMI) *Q: Med/tx not indicated/need Statin Contraindications AMI *Q: Med/TX Not Indicated/Need Consult PN Assessment/Plan Procedures: Procedures ASSAY OF GONADOTROPIN (FSH) (12/16/15) ASSAY OF GONADOTROPIN (LH) (12/16/15) ASSAY OF LACTIC ACID (04/28/20) ASSAY OF MAGNESIUM (04/28/20) ASSAY OF PHOSPHORUS (04/28/20) ASSAY OF PROLACTIN (11/25/15) ASSAY OF TOTAL ESTRADIOL (12/16/15) ASSAY THYROID STIM HORMONE (11/25/15) BLOOD TYPING SEROLOGIC ABO (12/04/20) BLOOD TYPING SEROLOGIC RH(D) (12/04/20) CHORIONIC GONADOTROPIN ASSAY (11/25/15) CHYLMD TRACH DNA AMP PROBE (12/04/20) COMPLETE CBC AUTOMATED (12/04/20) COMPLETE CBC W/AUTO DIFF WBC (04/28/20) COMPREHEN METABOLIC PANEL (04/28/20) CT ABD & PELV 1/> REGNS (05/05/20) CT ABD & PELV W/CONTRAST (09/21/19) CT ABD & PELVIS W/O CONTRAST (04/28/20) CT HEAD/BRAIN W/O DYE (09/14/16) CT NECK SPINE W/O DYE (09/14/16) CYSTOSCOPY AND TREATMENT (04/28/20) CYSTOURETERO & OR PYELOSCOPE (04/28/20) EMERGENCY DEPT VISIT (04/28/20) EMERGENCY DEPT VISIT (03/23/18) EMERGENCY DEPT VISIT (04/05/17) EMERGENCY DEPT VISIT (09/14/16) FLUOROSCOPY <1 HR PHYS/QHP (04/28/20) HEPATITIS B SURFACE AG IA (12/04/20) HEPATITIS C AB TEST (12/04/20) HIV-1 AG W/HIV-1 & -2 AB AG IA (12/04/20) HPV HIGH-RISK TYPES (08/21/15) HYDRATE IV INFUSION ADD-ON (04/28/20) KNEE ARTHROSCOPY/SURGERY (11/15/18) METABOLIC PANEL TOTAL CA (04/28/20) MICROBE SUSCEPTIBLE OSMAN (11/13/15) N.GONORRHOEAE DNA AMP PROB (12/04/20) RBC ANTIBODY SCREEN (12/04/20) ROUTINE VENIPUNCTURE (04/28/20) RUBELLA ANTIBODY (12/04/20) SARS-COV-2 COVID-19 AMP PRB (04/28/20) SMEAR WET MOUNT SALINE/INK (06/14/16) SYPHILIS TEST NON-TREP QUAL (12/04/20) THER/PROPH/DIAG INJ IV PUSH (03/23/18) THER/PROPH/DIAG INJ SC/IM (04/05/17) THER/PROPH/DIAG IV INF INIT (04/28/20) TRANSVAGINAL US NON-OB (12/01/15) TX/PRO/DX INJ NEW DRUG ADDON (04/28/20) TX/PRO/DX INJ SAME DRUG SALESPERSON MEN'S FURNISHINGS (04/28/20) URINALYSIS AUTO W/O SCOPE (04/15/15) URINALYSIS AUTO W/SCOPE (04/28/20) URINE BACTERIA CULTURE (11/13/15) URINE CULTURE/COLONY COUNT (12/04/20) URINE TEST (04/28/20) UROGRAPHY NFS DRIP&/BLS W/NF (06/24/20) WEST NILE VIRUS AB IGM (03/23/18) WEST NILE VIRUS ANTIBODY (03/23/18) X-RAY EXAM ABDOMEN 1 VIEW (05/26/20) X-RAY EXAM KNEE 4 OR MORE (10/26/18) X-RAY EXAM OF ANKLE (05/01/18) X-RAY EXAM OF FOOT (05/01/18) X-RAY EXAM OF HAND (06/27/19) X-RAY EXAM OF KNEE 1 OR 2 (06/28/16) X-RAY EXAM OF LOWER LEG (06/23/17) X-RAY EXAM OF SHOULDER (04/05/17) (1) History of endometrial ablation SNOMED Code(s): 745356239255652 Code(s): Z98.890 - OTHER SPECIFIED POSTPROCEDURAL STATES Current Visit: Yes (2) premature rupture of membranes SNOMED Code(s): 702356351 Code(s): O42.919 - PRETRM RICK ROM, UNSP TIME BETW RUPT AND ONST LABR, UNSP TRI Current Visit: Yes Onset Date: ~02/16/21 Comment: 17 weeks 6 days Problem List Initiated/Reviewed/Updated: Yes Plan: 40yo @ 17w6d with periviable rupture of membranes. Discussed options, including induction of labor (at alternative facility due to positive heart tones) versus expectant management. Reviewed risks of expectant management, including maternal infection, labor, demise, poor lung development, umbilical cord prolapse. Discussed with Dr. Johnson, if expectant management chosen, plan to see in clinic weekly, latency antibiotics at 20 weeks, and admission at tertiary care facility at 23 weeks for remainder of . Affirm today to evaluate for infection, will treat if positive. Patient desires expectant management. Reviewed calling if fever, sev ere pain, purulent vaginal discharge, vaginal bleeding, or any questions or concerns. Has appointment scheduled for next week in clinic. Patient voiced understanding of the above risks and plan and desires to proceed with expectant management. All questions answered.
[2021-02-16 17:11] VITALS: BP 98/52; PULSE 86
[2021-02-16 17:23] LABS: BLOOD UREA NITROGEN,BUN 8 mg/dL (7.0-18.0); CARBON DIOXIDE,CO2 26.1 mmol/L (21.0-32.0); CHLORIDE,CL 106 mmol/L (98-107); GLUCOSE RANDOM 100 mg/dL (74-106); POTASSIUM,K 3.5 mmol/L (3.5-5.1); SODIUM,NA 141 mmol/L (136-145)
== END 2021-02-16 17:11 | disposition home or self-care (01) ==
LOC: MW.ED 14:35
DX: O42.912 Preterm premature rupture of membranes, unspecified as to length of time between rupture and onset of labor, second trimester (principal); O43.212 Placenta accreta, second trimester; Z3A.18 18 weeks gestation of pregnancy
CPT/HCPCS: 36415; 76815; 76815-26; 80048; 84112; 85025; 87480; 87510; 87660; 99284-25

== ENCOUNTER 2022-07-23 07:09 | Day surgery (SDC) | payer OTHER ==
[2022-07-23] MEDS ORDERED: Propofol 200 MG/20 ML SDV ONE (07:36)
[2022-07-23] MEDS ORDERED: Lactated Ringers 1,000 ML IV SCH ×2 (08:00→09:15)
[2022-07-23] MEDS ORDERED: cefOXitin 1 GM in Premix Bag 1 BAG IV SCH (08:00)
== END 2022-07-23 09:29 | disposition home or self-care (01) ==
LOC: MW.SDS 07:09
PROVIDERS: ATTEND Surgery
DX: K62.5 Hemorrhage of anus and rectum (principal); K64.8 Other hemorrhoids; J45.909 Unspecified asthma, uncomplicated; G47.00 Insomnia, unspecified; G43.909 Migraine, unspecified, not intractable, without status migrainosus; Z88.2 Allergy status to sulfonamides; Z88.8 Allergy status to other drugs, medicaments and biological substances; Z91.018 Allergy to other foods; Z79.899 Other long term (current) drug therapy; Z90.49 Acquired absence of other specified parts of digestive tract; Z98.890 Other specified postprocedural states
CPT/HCPCS: 81025; J2704; J7120; 00811

== ENCOUNTER 2022-08-06 06:26 | Day surgery (SDC) | payer OTHER ==
[~2022-08-06 06:26] MED LIST changes: -Acetaminophen/HYDROcodone 325-5 MG Tab PO PRN; -Dexamethasone 4 MG/ML 5 ML MDV ONE; -Lidocaine 1% 20 ML MDV ONE; -Midazolam 1 MG/ML 2 ML SDV ONE; -Ondansetron 4 MG/2 ML SDV ONE; -Propofol 200 MG/20 ML SDV ONE; +ceFAZolin 1 GM in Premix Bag 1 BAG IV ONE; -ceFAZolin 1 GM in Premix Bag 1 BAG IV SCH; -fentaNYL 250 MCG/5 ML SDV ONE
[2022-08-06] MEDS ORDERED: fentaNYL 50 MCG/ML SDV IVPUSH PRN (07:02)
[2022-08-06] MEDS ORDERED: Morphine 2 MG/ML SYRINGE IVPUSH PRN (07:02)
[2022-08-06] MEDS ORDERED: Albuterol 0.083% 2.5 MG/3 ML Neb Soln NEB PRN (07:02)
[2022-08-06] MEDS ORDERED: Naloxone 0.4 MG/ML SDV IVPUSH PRN (07:02)
[2022-08-06] MEDS ORDERED: Metoclopramide 10 MG/2 ML SDV IVPUSH PRN (07:02)
[2022-08-06] MEDS ORDERED: Ondansetron 4 MG/2 ML SDV IVPUSH PRN ×2 (07:02→08:55)
[2022-08-06] MEDS ORDERED: HYDROmorphone 1 MG/ML Syringe IVPUSH PRN (07:02)
[2022-08-06] MEDS ORDERED: Desflurane 240 ML Bottle ONE (07:24)
[2022-08-06] MEDS ORDERED: Famotidine 20 MG/2 ML SDV ONE (07:24)
[2022-08-06] MEDS ORDERED: Ropivacaine 0.5% 5 MG/ML 30 ML SDV ONE (07:24)
[2022-08-06] MEDS ORDERED: ceFAZolin 1 GM Vial ONE (07:25)
[2022-08-06] MEDS ORDERED: Bupivacaine 0.5% 30 ML SDV ONE (07:26)
[2022-08-06] MEDS ORDERED: Bupivacaine 0.25% 30 ML SDV ONE (07:26)
[2022-08-06] MEDS ORDERED: Lidocaine 2% 11 ML Jelly Filled Syringe ONE (07:29)
[2022-08-06] MEDS ORDERED: fentaNYL 100 MCG/2 ML SDV ONE ×2 (07:34→07:39)
[2022-08-06] MEDS ORDERED: Propofol 200 MG/20 ML SDV ONE (07:39)
[2022-08-06] MEDS ORDERED: Sugammadex Sodium 200 MG/2 ML VIAL ONE (08:26)
[2022-08-06] MEDS ORDERED: Rocuronium Bromide 50 MG/5 ML Syringe ONE (08:26)
[2022-08-06] MEDS ORDERED: Phenylephrine HCl In 0.9% NaCl 1 MG/10 ML Vial ONE (08:26)
[2022-08-06] MEDS ORDERED: Ondansetron 4 MG/2 ML SDV ONE ×2 (08:26→08:44)
[2022-08-06] MEDS ORDERED: ePHEDrine 50 MG/ML SDV ONE (08:26)
[2022-08-06] MEDS ORDERED: Glycopyrrolate 0.2 MG/ML SDV ONE (08:26)
[2022-08-06] MEDS ORDERED: Dexamethasone 4 MG/ML 5 ML MDV ONE (08:26)
[2022-08-06] MEDS ORDERED: Metoclopramide 10 MG/2 ML SDV ONE (08:44)
[2022-08-06] MEDS ORDERED: diphenhydrAMINE 50 MG/ML SDV ONE ×2 (08:47→08:48)
[2022-08-06] MEDS ORDERED: Ketorolac 30 MG/ML SDV ONE (08:47)
[2022-08-06] MEDS ORDERED: Acetaminophen/HYDROcodone 325-5 MG Tab PO PRN (08:55)
[2022-08-06] MEDS ORDERED: Lactated Ringers 1,000 ML IV SCH (09:00)
== END 2022-08-06 10:35 | disposition home or self-care (01) ==
LOC: MW.SDS 06:26
PROVIDERS: ATTEND Surgery
DX: K42.0 Umbilical hernia with obstruction, without gangrene (principal); G47.00 Insomnia, unspecified; J45.990 Exercise induced bronchospasm; G43.909 Migraine, unspecified, not intractable, without status migrainosus; L70.9 Acne, unspecified; N32.81 Overactive bladder; K62.5 Hemorrhage of anus and rectum; Z79.899 Other long term (current) drug therapy; Z88.1 Allergy status to other antibiotic agents; Z88.8 Allergy status to other drugs, medicaments and biological substances; Z98.890 Other specified postprocedural states; Z90.49 Acquired absence of other specified parts of digestive tract; Z83.79 Family history of other diseases of the digestive system; Z87.440 Personal history of urinary (tract) infections; Z87.448 Personal history of other diseases of urinary system; Z83.3 Family history of diabetes mellitus; Z78.9 Other specified health status
CPT/HCPCS: 49587; A9270; J0131; J1100; J2704; J2765; J2795; J3010; J3490; J7120; J0690; J2405